=== PATIENT | male | born 1960 | race Two or more races ===

== ENCOUNTER 2020-08-14 19:06 | Inpatient (IN) | payer MEDICAID ==
[~2020-08-14] VITALS: Ht 172.7 cm; Wt 70.0 kg
[~2020-08-14 19:06] MED LIST: AMLO5TAB15 PO; CARV25TA55 PO; FURO1TAB33 PO; HYDR50TA15 PO; NIFE1TAB30 PO
[2020-08-14 23:45] LABS: Basophils # (auto) 0 10 ^3/uL (0-0.2); Basophils % (auto) 0.3 % (0.0-2.0); Eosinophils # (auto) 0.1 10 ^3/uL (0-0.8); Eosinophils % (auto) 0.6 % (0.0-7.0); Hematocrit 48.4 % (41.0-53.0); Lymphocytes % (auto) 11.7 % (10.0-50.0); Mean Corpuscular Hemoglobin 29.8 pg (28.0-32.0); Mean Corpuscular Hgb Conc. 33.1 g/dL (32.0-36.0); Mean Corpuscular Volume 90.3 fL (80.0-100.0); Monocytes # (auto) 0.5 10 ^3/uL (0-1.3); Monocytes % (auto) 5.4 % (0.0-12.0); Neutrophils # (auto) 7.1 10 ^3/uL (1.6-8.6); Platelet Count (auto) 185 10^3/uL (140-450); Red Blood Cells 5.36 10^6/uL (4.5-5.90); Red Cell Distribution Width 15.1 % (11.8-14.3); White Blood Cell 8.6 10^3/uL (4.4-10.8)
[2020-08-15 00:03] LABS: INR 1.13 (0.9-1.15); Partial Thromboplastin Time 28.7 sec (23.0-31.2)
[2020-08-15 00:24] LABS: Albumin 3.5 g/dL (3.4-5.0); BUN/Creatinine Ratio 11.3; Bilirubin, Total 0.6 mg/dL (0.2-1.0); Calcium 9.3 mg/dL (8.5-10.1); Potassium 4.1 mmol/L (3.5-5.1); Total Protein 7.2 g/dL (6.4-8.2)
[2020-08-15] MEDS ORDERED: FUROSEMIDE 40 MG/4 ML VIAL IV ONE (01:00)
[2020-08-15] MEDS ORDERED: hydrALAZINE HCL 20 MG/ML VL IV PRN ×2 (02:15→06:15)
[2020-08-15] MEDS ORDERED: ACETAMINOPHEN 325 MG TAB PO PRN (02:15)
[2020-08-15] MEDS ORDERED: ONDANSETRON HCL 4 MG/2 ML VIAL IV PRN (02:15)
[2020-08-15] MEDS ORDERED: DOCUSATE SOD 100 MG CAP PO PRN (02:15)
[2020-08-15] MEDS ORDERED: HYDROcodone-ACET 5/325MG TAB PO PRN (02:15)
[2020-08-15] MEDS ORDERED: ASPI81CH43 PO (02:59)
[2020-08-15] MEDS ORDERED: CLON0.2T PO (02:59)
[2020-08-15 04:25] LABS: Basophils # (auto) 0 10 ^3/uL (0-0.2); Basophils % (auto) 0.4 % (0.0-2.0); Eosinophils # (auto) 0.1 10 ^3/uL (0-0.8); Eosinophils % (auto) 0.9 % (0.0-7.0); Hematocrit 51.4 % (41.0-53.0); Hemoglobin 16.7 g/dL (13.5-17.5); Lymphocytes # (auto) 1.1 10 ^3/uL (0.4-5.4); Lymphocytes % (auto) 14.5 % (10.0-50.0); Mean Corpuscular Hemoglobin 29.4 pg (28.0-32.0); Mean Corpuscular Hgb Conc. 32.6 g/dL (32.0-36.0); Mean Corpuscular Volume 90.4 fL (80.0-100.0); Monocytes # (auto) 0.4 10 ^3/uL (0-1.3); Monocytes % (auto) 5.8 % (0.0-12.0); Neutrophils # (auto) 5.9 10 ^3/uL (1.6-8.6); Neutrophils % (auto) 78.4 % (37.0-80.0); Nucleated Red Blood Cells % 0.2 %; Platelet Count (auto) 209 10^3/uL (140-450); Red Blood Cells 5.69 10^6/uL (4.5-5.90); Red Cell Distribution Width 14.6 % (11.8-14.3); White Blood Cell 7.5 10^3/uL (4.4-10.8)
[2020-08-15 05:09] LABS: Albumin 3.8 g/dL (3.4-5.0); BUN/Creatinine Ratio 11.3; Bilirubin, Total 0.7 mg/dL (0.2-1.0); Calcium 9.5 mg/dL (8.5-10.1); Potassium 4.1 mmol/L (3.5-5.1); Total Protein 8.1 g/dL (6.4-8.2)
[2020-08-15] MEDS: SODIUM CHLOR 0.9% PF (SALINE LOCK) 10ML VIAL/SYR IV SCH ×3 (06:05→21:35)
[2020-08-15] MEDS ORDERED: amLODIPine BESYLATE 5 MG TAB ONE (06:46)
[2020-08-15] MEDS ORDERED: hydrALAZINE HCL 10 MG TAB ONE (06:47)
[2020-08-15] MEDS: hydrALAZINE HCL 25 MG TAB PO SCH ×3 (06:54→21:35)
[2020-08-15] MEDS: amLODIPine BESYLATE 5 MG TAB PO SCH ×2 (06:55→10:00)
--- NOTE | 2020-08-15 09:05 | NUR ---
RECEIVED REPORT RECEIVED REPORT FROM CONTENT PRODUCER STUART. PER STUART LAST BP WAS 170/109 AND HYDRALAZINE WAS GIVEN. PER ER WIRE COATING OPERATOR METAL STATED TO SEND PT UPSTAIRS PT RECEIVED HYDRALAZINE. PT IS ALREADY ON WAY, PT WAS PASSING BY NURSES STATION REPORT WAS BEING RECEIVED. WILL ASSESS BP PER WIRE COATING OPERATOR METAL PT SHOULDN'T COME UP TO ROOM WITH SBP>170 OR DIASTOLIC BP >100.
--- NOTE | 2020-08-15 09:10 | NUR ---
HOUSE TOBACCO CHECKOUT CLERK LISSA STATED THAT SHE IS AWARE PT BP IS STILL 170/109 AND PT IS TO GO TO ROOM BECAUSE ER CANNOT BE HOLDING ON TO PT FOR HOURS. PER LISSA PT HAS PRN MEDICATIONS FOR BP AND MEDICATION WAS GIVEN PRIOR TO COMING TO ROOM. PER LISSA RANDALL TOBACCO CHECKOUT CLERK OKAY FOR PT TO BE ACCEPTED TO THE UNIT.
[2020-08-15 09:23] VITALS: BP 149/105
[2020-08-15] MEDS: ASPirin 81 mg TAB PO SCH (09:57)
[2020-08-15] MEDS: FAMOTIDINE 20 MG TAB PO SCH (09:57)
[2020-08-15] MEDS: ASCORBIC ACID 500 MG TAB PO SCH ×2 (09:57→21:34)
[2020-08-15] MEDS: MULTIPLE VITAMIN TAB PO SCH (09:58)
[2020-08-15] MEDS: CARVEDILOL 12.5 MG TAB PO SCH ×2 (09:58→21:35)
[2020-08-15] MEDS: ZINC SULFATE 220mg CAP or TAB PO SCH (09:58)
[2020-08-15] MEDS: NIFEdipine ER 30 MG TAB PO SCH (09:59)
[2020-08-15] MEDS ORDERED: amLODIPine BESYLATE 5 MG TAB PO SCH (10:00)
[2020-08-15] MEDS: FUROSEMIDE 20 MG/2 ML VIAL IV SCH (10:00)
[2020-08-15] MEDS: MORPHINE SULFATE 4 MG/ML SYR/VIAL IV PRN (10:33)
[2020-08-15] MEDS ORDERED: LABETALOL HCL 5 MG/ML 4ML SYRINGE IV PRN (12:45)
[2020-08-15 12:58] VITALS: BP 180/108
[2020-08-15 16:37] VITALS: BP 131/84
--- NOTE | 2020-08-15 19:20 | NUR ---
CHANGE OF SHIFT REPORT GIVEN TO MARKETING COORDINATOR RN. PT STABLE AT THIS TIME.
--- NOTE | 2020-08-15 19:30 | NUR ---
Opening Shift Note Assumed care of patient, awake and alert. No S/S of distress/SOB or pain. Fall and safety precautions in place. Instructed on POC and to call for assist PRN, patient verbalized understanding and in agreement. Will continue to monitor for changes Q1hr and PRN.
[2020-08-15 22:00] VITALS: BP 127/96
--- NOTE | 2020-08-15 22:22 | NUR ---
HEART RATE - SVT PATIENT'S HEART RATE SVT AT 150 BPM. MD [facility] AWARE OF PATIENT'S HEART STATUS. Addendum: 08/15/20 at 2233 by DON DENIS RN RN TELE STRIP PLACED IN CHART.
--- NOTE | 2020-08-15 22:30 | NUR ---
HEART RATE RECHECK PATIENT'S HEART RATE NOW 79 BPM. WILL CONTINUE TO MONITOR.
[2020-08-16 05:00] VITALS: BP 146/97
[2020-08-16] MEDS: SODIUM CHLOR 0.9% PF (SALINE LOCK) 10ML VIAL/SYR IV SCH ×3 (06:03→22:13)
[2020-08-16] MEDS: hydrALAZINE HCL 25 MG TAB PO SCH ×3 (06:03→22:19)
[2020-08-16 06:13] LABS: Basophils # (auto) 0 10 ^3/uL (0-0.2); Basophils % (auto) 0.6 % (0.0-2.0); Eosinophils # (auto) 0.2 10 ^3/uL (0-0.8); Eosinophils % (auto) 2.6 % (0.0-7.0); Hematocrit 51.3 % (41.0-53.0); Hemoglobin 17.2 g/dL (13.5-17.5); Lymphocytes % (auto) 15.8 % (10.0-50.0); Mean Corpuscular Hemoglobin 30.1 pg (28.0-32.0); Mean Corpuscular Hgb Conc. 33.6 g/dL (32.0-36.0); Mean Corpuscular Volume 89.4 fL (80.0-100.0); Monocytes # (auto) 0.5 10 ^3/uL (0-1.3); Monocytes % (auto) 7.1 % (0.0-12.0); Neutrophils # (auto) 4.8 10 ^3/uL (1.6-8.6); Neutrophils % (auto) 73.9 % (37.0-80.0); Platelet Count (auto) 218 10^3/uL (140-450); Red Blood Cells 5.73 10^6/uL (4.5-5.90); White Blood Cell 6.5 10^3/uL (4.4-10.8)
[2020-08-16 06:30] LABS: Albumin 3.5 g/dL (3.4-5.0); BUN/Creatinine Ratio 11.6; Bilirubin, Total 0.6 mg/dL (0.2-1.0); Calcium 9.3 mg/dL (8.5-10.1); Potassium 3.2 mmol/L (3.5-5.1); Total Protein 7.5 g/dL (6.4-8.2)
[2020-08-16 09:00] VITALS: BP 129/78
[2020-08-16] MEDS: FUROSEMIDE 20 MG/2 ML VIAL IV SCH (11:00)
[2020-08-16] MEDS: FAMOTIDINE 20 MG TAB PO SCH (11:00)
[2020-08-16] MEDS: ASPirin 81 mg TAB PO SCH (11:00)
[2020-08-16] MEDS: MULTIPLE VITAMIN TAB PO SCH (11:00)
--- NOTE | 2020-08-16 11:00 | NUR ---
PT REFUSED FUROSEMIDE, PT EDUCATED ON IMPORTANCE OF TAKING MEDICATION. PT STILL REFUSED.
[2020-08-16] MEDS: NIFEdipine ER 30 MG TAB PO SCH (11:01)
[2020-08-16] MEDS: amLODIPine BESYLATE 5 MG TAB PO SCH (11:01)
[2020-08-16] MEDS: ZINC SULFATE 220mg CAP or TAB PO SCH (11:01)
[2020-08-16] MEDS: ASCORBIC ACID 500 MG TAB PO SCH ×2 (11:02→22:19)
[2020-08-16] MEDS: CARVEDILOL 12.5 MG TAB PO SCH ×3 (11:02→22:19)
--- NOTE | 2020-08-16 11:02 | NUR ---
Nutrition Consult for N/V/D Pt denies GI issues Consider changing pt diet to Renal Specific 50g protein, 2g Na, 2g K, low phos d/t to CKD no HD Est energy needs 2960-7051 kcal (25-30 kcal/kg BW 69.6kg) Est protein needs 42-56g (0.6-0.8g/kg BW 69.6kg r/t elevated RFT, CKD no HD) WIll monitor and reassess prn. Addendum: 08/16/20 at [address] Amended: Links added.
[2020-08-16 13:00] VITALS: BP 124/79
--- NOTE | 2020-08-16 13:40 | NUR ---
DR SPANN MADE AWARE OF PT RUN OF VTACH. NEW ORDERS RECEIVED.
--- NOTE | 2020-08-16 13:50 | NUR ---
TELE STRIPS WITH SHOWING ARRHYTHMIA WERE NOT SENT UP TO UNIT UNTIL 1350.
--- NOTE | 2020-08-16 13:55 | NUR ---
DR SPANN VIEWED TELE STRIP, NEW ORDER RECEIVED FOR 12 LEAD EKG. 1415- DR SPANN REVIEWED 12 LEAD EKG. NO NEW ORDERS RECEIVED.
[2020-08-16] MEDS ORDERED: POTASSIUM CHL 20 Meq TABLET PO ONE (14:00)
[2020-08-16 16:42] VITALS: BP 143/94
--- NOTE | 2020-08-16 17:05 | NUR ---
1705-PT STATES HE HAS CP 02/01. 1707-PT BP 139/108 NITRO SL GIVEN ORDERED. 1712-PT STATES HE NO LONGER HAS PAIN, AND NITRO RELIEVED THE CP. WILL CONTINUE TO MONITOR Addendum: 08/16/20 at 1822 by Meghan Nur RN RN 1704-PT WAS IN SINUS RHYTHM.
[2020-08-16] MEDS: NITROGLYCERIN 0.4 MG SL TAB SL PRN ×4 (17:08→19:09)
--- NOTE | 2020-08-16 18:15 | NUR ---
DR SORIA PAGED DR SAINI TO MAKE HIM AWARE OF PT EXPERIENCING CP EARLIER THAT WAS RELIEVED WITH ONE DOSE OF NITRO SL. AWAITING CALL BACK. PT IS SR IN THE 70'S.
--- NOTE | 2020-08-16 18:53 | NUR ---
C PYTHON DEVELOPER STILL HAS NOT CALLED BACK AFTER EARLIER PAGE. PT IS EXPERIENCING CP AGAIN 7/10. PT PLACED ON 2L NC. NITRO SL ADMINISTERED ORDERED. SEE EMAR. BP 141/102. 1854- DR FELDMAN C PYTHON DEVELOPER AT BEDSIDE HE IS AWARE OF EARLIER EPISODE OF CP AND THIS CURRENT CP RIGHT NOW. DR FELDMAN IS AWARE OF ARRHYTHMIAS TODAY. DR FELDMAN WANTS EKG DONE NOW. EKG COMPLETED AT THIS TIME. DR FELDMAN REVIEWED EKG AND STATES TO THE PT THAT HE IS NOT HAVING A HEART ATTACK. DR FELDMAN OKAYED TO PROCEED WITH NITRO ORDERED. DR FELDMAN IS AWARE K WAS 3.2 AND WAS REPLACED WITH KCL 40MEQ PO. 1902- PT STILL COMPLAINS OF CP 7/10 NO RELIEF WITH FIRST DOSE OF NITRO. BP NOW 139/104 SECOND DOSE OF SUBLINGUAL NITRO GIVEN ORDER AND PER DR FELDMAN GO AHEAD TO GIVE SECOND DOSE. DR FELDMAN STATES PT SHOULD HAVE HAD CT ANGIO OF CHEST, HOWEVER NO ORDERS FOR CT ANGIO OF CHEST ARE PRESENT. 1907-ORDER PLACED FOR CT ANGIO OF CHEST PER DR FELDMAN'S REQUEST. 1908- PT STILL COMPLAINS OF CP 7/10. BP NOW 158/96. THIRD DOSE OF NITRO SL GIVEN ORDERED. DR FELDMAN IS AWARE. 1917- PT STATES PAIN IS STILL 7/10. BP NOW 149/94. MORPHINE FOR CP GIVEN ORDERED. DR FELDMAN IS AWARE CP HAS NOT BEEN RELIEVED BY SL NITRO AND MORPHINE HAS BEEN GIVEN. DR FELDMAN AT BEDSIDE. ALL ORDERS DR FELDMAN VERBALIZED TO ENTER WERE ENTERED. 193-PT STATES CP IS NOW BETWEEN A 5 AND 6. IT IS SLIGHTLY IMPROVING.
[2020-08-16] MEDS: MORPHINE SULF INJ 2 MG/ML SYRINGE 1ML IV PRN ×2 (19:18→20:13)
--- NOTE | 2020-08-16 19:40 | NUR ---
CHANGE OF SHIFT CHANGE OF SHIFT REPORT GIVEN TO FACE CLEANER RN. CARE ENDORSED TO FACE CLEANER RN. SHE IS AWARE OF PT EXPERIENCING CP AND MORPHINE WAS LAST GIVEN FOR CP.
--- NOTE | 2020-08-16 19:45 | NUR ---
OPENING SHIFT NOTE Assumed care of patient who is alert and oriented currently on 2L NC with no S/S of distress noted at this time. Per report patient was experiencing chest pain. Patient stated his chest pain has decreased from 8/10 to 4/10. POC discussed with patient, all questions answered, patient verbalized understanding. Bed is locked, in lowest position, side rails up x2. Call light is within reach and patient is encouraged to call for assistance as needed. Will continue to monitor PRN/Q1hr.
--- NOTE | 2020-08-16 20:13 | NUR ---
CHEST PAIN Second dose of morphine was given for chest pain now 04/03. Will reassess and continue to monitor VS and pain.
[2020-08-16 20:20] LABS: Albumin 3.3 g/dL (3.4-5.0); Potassium 3.5 mmol/L (3.5-5.1)
[2020-08-16 20:23] LABS: BUN/Creatinine Ratio 11.2; Bilirubin, Total 0.4 mg/dL (0.2-1.0); Total Protein 7.1 g/dL (6.4-8.2)
--- NOTE | 2020-08-16 20:30 | NUR ---
COVID SWAB ordered rebekah/inhouse swab. Both swabs walked down to lab.
--- NOTE | 2020-08-16 22:45 | NUR ---
SPOKE WITH . wanted to be notified of new potassium level. Made MD aware of new potassium of 3.5, negative rebekah swab, and informed MD that patient will be taken down for CT angio within the hour. No new orders at this time.
--- NOTE | 2020-08-17 02:00 | NUR ---
RADIOLOGY Spoke with radiology, they are not able to do the CT angio with contrast due to patients BUN and creatinine being elevated. Will contact .
--- NOTE | 2020-08-17 02:05 | NUR ---
CALLED No answered, left message regarding no CT angio with contrast. Will await call back.
[2020-08-17 03:12] VITALS: BP 135/94
[2020-08-17 05:28] VITALS: BP 137/97
[2020-08-17] MEDS: hydrALAZINE HCL 25 MG TAB PO SCH ×3 (06:11→22:08)
[2020-08-17] MEDS: CARVEDILOL 12.5 MG TAB PO SCH ×3 (06:12→22:08)
[2020-08-17] MEDS: SODIUM CHLOR 0.9% PF (SALINE LOCK) 10ML VIAL/SYR IV SCH ×3 (06:12→21:44)
--- NOTE | 2020-08-17 07:27 | NUR ---
DR. FELDMAN BEDSIDE New orders for VQ scan and troponin, orders placed will carry out.
[2020-08-17 07:31] LABS: Basophils # (auto) 0.1 10 ^3/uL (0-0.2); Basophils % (auto) 0.9 % (0.0-2.0); Eosinophils # (auto) 0.2 10 ^3/uL (0-0.8); Hemoglobin 18.1 g/dL (13.5-17.5); Lymphocytes # (auto) 1.2 10 ^3/uL (0.4-5.4); Lymphocytes % (auto) 16.1 % (10.0-50.0); Mean Corpuscular Hgb Conc. 33.6 g/dL (32.0-36.0); Mean Corpuscular Volume 89.5 fL (80.0-100.0); Monocytes # (auto) 0.5 10 ^3/uL (0-1.3); Monocytes % (auto) 7.5 % (0.0-12.0); Neutrophils # (auto) 5.2 10 ^3/uL (1.6-8.6); Neutrophils % (auto) 72.5 % (37.0-80.0); Nucleated Red Blood Cells % 0.4 %; Platelet Count (auto) 235 10^3/uL (140-450); Red Blood Cells 6.04 10^6/uL (4.5-5.90); Red Cell Distribution Width 15.1 % (11.8-14.3); White Blood Cell 7.2 10^3/uL (4.4-10.8)
[2020-08-17 07:50] LABS: Potassium 3.8 mmol/L (3.5-5.1)
--- NOTE | 2020-08-17 07:51 | NUR ---
CARE ENDORSED TO DAY SHIFT RN
[2020-08-17 08:04] LABS: Albumin 3.4 g/dL (3.4-5.0); BUN/Creatinine Ratio 12.2; Bilirubin, Total 0.5 mg/dL (0.2-1.0); Calcium 9.1 mg/dL (8.5-10.1); Magnesium 2.6 mg/dL (1.6-2.6); Total Protein 7.8 g/dL (6.4-8.2)
[2020-08-17 08:07] LABS: Phosphorus 2.4 mg/dL (2.5-4.90); Uric Acid 8.9 mg/dL (3.5-7.2)
--- NOTE | 2020-08-17 08:10 | NUR ---
Opening Shift Note Assumed care of patient, awake and alert. No S/S of distress/SOB or pain. Bed in lowest position side rails up x2 and call light within reach. Left wrist 20 G IV clean, dry, and patent with no signs of swelling or redness. Instructed on POC and to call for assist PRN, will continue to monitor for changes Q1hr and PRN.
[2020-08-17 08:15] LABS: Urine WBC None Seen /hpf (0 - 3)
[2020-08-17 08:23] LABS: Urine Bacteria FEW /hpf (None Seen); Urine Blood Negative /uL (Negative); Urine Specific Gravity 1.015 (1.001-1.035)
[2020-08-17 09:00] VITALS: BP 137/96
[2020-08-17 09:05] LABS: Protein, Urine 112.6 mg/dL (0.0-11.9)
[2020-08-17] MEDS: ASCORBIC ACID 500 MG TAB PO SCH ×2 (09:37→22:08)
[2020-08-17] MEDS: FUROSEMIDE 20 MG/2 ML VIAL IV SCH (09:37)
[2020-08-17] MEDS: ZINC SULFATE 220mg CAP or TAB PO SCH (09:38)
[2020-08-17] MEDS: ASPirin 81 mg TAB PO SCH (09:38)
[2020-08-17] MEDS: FAMOTIDINE 20 MG TAB PO SCH (09:38)
[2020-08-17] MEDS: MULTIPLE VITAMIN TAB PO SCH (09:38)
[2020-08-17] MEDS: NIFEdipine ER 30 MG TAB PO SCH (09:38)
[2020-08-17] MEDS: amLODIPine BESYLATE 5 MG TAB PO SCH (09:42)
--- NOTE | 2020-08-17 10:35 | NUR ---
Patient off floor Patient off floor for procedure.
[2020-08-17 13:00] VITALS: BP 153/115
[2020-08-17] MEDS: cloNIDine HCL 0.1 MG TAB PO SCH ×2 (14:03→22:00)
[2020-08-17] MEDS: MORPHINE SULF INJ 2 MG/ML SYRINGE 1ML IV PRN (14:55)
--- NOTE | 2020-08-17 15:00 | NUR ---
IV removal IV DC'd with clean sterile technique, catheter fully intact. Pressure dressing applied to site. Patient tolerated well. NOTE: [left wrist leaking and painful]
--- NOTE | 2020-08-17 15:05 | NUR ---
IV insertion IV access obtained, via clean sterile technique by inserting 22 gauge catheter at left forearm after 1 attempt. IV secured properly. No trauma to site. Patient tolerated well.
[2020-08-17 17:00] VITALS: BP 127/85
[2020-08-17] MEDS: MORPHINE SULFATE 4 MG/ML SYR/VIAL IV PRN ×2 (17:14→22:27)
--- NOTE | 2020-08-17 19:10 | NUR ---
PATIENT ROUNDS PATIENT SITTING UP IN BED ON THE TELEPHONE. NO S/S OF DISTRESS OR SOB. PATIENT DENIES PAIN. WILL ENDORSE CARE TO ROCK WORKER RN.
--- NOTE | 2020-08-17 19:20 | NUR ---
OPENING SHIFT NOTE Assumed care of patient who is alert and oriented currently on 2L NC with no S/S of distress noted at this time. POC discussed with patient, all questions answered, patient verbalized understanding. Bed is locked, in lowest position, side rails up x2. Call light is within reach and patient is encouraged to call for assistance as needed. Will continue to monitor PRN/Q1hr.
[2020-08-17 22:00] VITALS: BP 130/80
[2020-08-18 05:15] VITALS: BP 135/69
[2020-08-18] MEDS: hydrALAZINE HCL 25 MG TAB PO SCH ×2 (05:22→14:00)
[2020-08-18] MEDS: CARVEDILOL 12.5 MG TAB PO SCH ×2 (05:23→14:00)
[2020-08-18] MEDS: MORPHINE SULFATE 4 MG/ML SYR/VIAL IV PRN (06:03)
[2020-08-18] MEDS: SODIUM CHLOR 0.9% PF (SALINE LOCK) 10ML VIAL/SYR IV SCH ×2 (06:03→14:00)
[2020-08-18] MEDS: cloNIDine HCL 0.1 MG TAB PO SCH ×2 (06:18→14:00)
[2020-08-18 06:19] LABS: Basophils # (auto) 0 10 ^3/uL (0-0.2); Basophils % (auto) 0.8 % (0.0-2.0); Eosinophils # (auto) 0.2 10 ^3/uL (0-0.8); Eosinophils % (auto) 4.8 % (0.0-7.0); Hematocrit 46.9 % (41.0-53.0); Hemoglobin 15.3 g/dL (13.5-17.5); Lymphocytes % (auto) 20.8 % (10.0-50.0); Mean Corpuscular Hemoglobin 29.5 pg (28.0-32.0); Mean Corpuscular Hgb Conc. 32.7 g/dL (32.0-36.0); Monocytes # (auto) 0.5 10 ^3/uL (0-1.3); Monocytes % (auto) 11.1 % (0.0-12.0); Neutrophils % (auto) 62.5 % (37.0-80.0); Nucleated Red Blood Cells % 0.1 %; Platelet Count (auto) 175 10^3/uL (140-450); Red Blood Cells 5.21 10^6/uL (4.5-5.90); Red Cell Distribution Width 14.7 % (11.8-14.3); White Blood Cell 4.8 10^3/uL (4.4-10.8)
[2020-08-18 07:06] LABS: Potassium 3.6 mmol/L (3.5-5.1)
[2020-08-18 07:13] LABS: BUN/Creatinine Ratio 15.6; Calcium 8.7 mg/dL (8.5-10.1)
--- NOTE | 2020-08-18 07:15 | NUR ---
CARE ENDORSED TO DAY SHIFT RN
--- NOTE | 2020-08-18 07:35 | NUR ---
Opening Shift Note Assumed care of patient, awake and alert. No S/S of distress/SOB or pain. Updated on POC and to call for assistance PRN, patient verbalized understanding. Bed locked in lowest position, side rails up x2, call light within reach. Will continue to monitor for changes Q1hr and PRN.,
[2020-08-18 09:00] VITALS: BP 119/86
[2020-08-18] MEDS: MORPHINE SULF INJ 2 MG/ML SYRINGE 1ML IV PRN (09:07)
[2020-08-18] MEDS: ASPirin 81 mg TAB PO SCH (09:07)
[2020-08-18] MEDS: ZINC SULFATE 220mg CAP or TAB PO SCH (09:07)
[2020-08-18] MEDS: FUROSEMIDE 20 MG/2 ML VIAL IV SCH (09:07)
[2020-08-18] MEDS: FAMOTIDINE 20 MG TAB PO SCH (09:07)
[2020-08-18] MEDS: MULTIPLE VITAMIN TAB PO SCH (09:08)
[2020-08-18] MEDS: amLODIPine BESYLATE 5 MG TAB PO SCH (09:08)
[2020-08-18] MEDS: NIFEdipine ER 30 MG TAB PO SCH (09:08)
[2020-08-18] MEDS: ASCORBIC ACID 500 MG TAB PO SCH (09:09)
--- NOTE | 2020-08-18 09:15 | NUR ---
PACEMAKER INTERROGATED BY [facility] SEE HARD CHART. PER SHELLFISH PROCESSING MACHINE TENDER, DR SAINI MADE AWARE OF INTERROGATION.
[2020-08-18] MEDS ORDERED: NICOTINE 21MG/24 HR TOPICAL PATCH TD SCH (10:00)
[2020-08-18 13:00] VITALS: BP 121/86
--- NOTE | 2020-08-18 14:10 | NUR ---
DISCHARGE HOME Discharge instructions given as ordered. Encourage to follow up with PMD as instructed. All questions and concerns addressed. Patient verbalized understanding. Medication reconciliation form completed and copy given to patient. IV removed with catheter intact, pressure dressing applied. Telemetry unit returned to ICU. [facility] with all personal belongings, accompanied by staff. Provided with taxi voucher, pending pickup. No distress noted at time of departure.
[2020-08-19] MEDS ORDERED: NIFE90TA49 PO (06:50)
== END 2020-08-18 14:10 | disposition home or self-care (01) | DRG 199 ==
LOC: EDBD 19:06 → ER 19:06 → TELE 19:07 → TELE-WESTW 08-15 09:09
PROVIDERS: ADMIT Nurse Practitioner Family; ATTEND Internal Medicine
PROC: 4B02XSZ Measurement of Cardiac Pacemaker, External Approach (ICD-10-PCS; principal; 2020-08-18)
DX: I16.0 Hypertensive urgency (principal); I13.0 Hypertensive heart and chronic kidney disease with heart failure and stage 1 through stage 4 chronic kidney disease, or unspecified chronic kidney disease; I50.43 Acute on chronic combined systolic (congestive) and diastolic (congestive) heart failure; N17.9 Acute kidney failure, unspecified; N18.32 Chronic kidney disease, stage 3b; E87.6 Hypokalemia; I25.10 Atherosclerotic heart disease of native coronary artery without angina pectoris; I47.1 Supraventricular tachycardia; N27.1 Small kidney, bilateral; N40.0 Benign prostatic hyperplasia without lower urinary tract symptoms; Z20.828 Contact with and (suspected) exposure to other viral communicable diseases; I25.2 Old myocardial infarction; Z79.82 Long term (current) use of aspirin; Z79.899 Other long term (current) drug therapy; Z82.49 Family history of ischemic heart disease and other diseases of the circulatory system; Z86.73 Personal history of transient ischemic attack (TIA), and cerebral infarction without residual deficits; Z95.810 Presence of automatic (implantable) cardiac defibrillator
CPT/HCPCS: 36415; 71045; 76775; 78582; 80048; 80053; 81001; 82306; 82570; 83735; 83880; 83970; 84100; 84156; 84300; 84443; 84484; 84550; 85025; 85379; 85610; 85730; 87426; 93306; 96374; 96375; 96376; G0378; J3490

== ENCOUNTER 2020-08-18 23:20 | Inpatient (IN) | payer MEDICAID ==
[~2020-08-18] VITALS: Ht 172.7 cm; Wt 76.3 kg
[~2020-08-18 23:20] MED LIST changes: -AMLO5TAB15 PO; +ASPI81CH43 PO; +CLON0.2T PO; -FURO1TAB33 PO
[2020-08-19 00:14] LABS: Basophils # (auto) 0.1 10 ^3/uL (0-0.2); Basophils % (auto) 1.1 % (0.0-2.0); Eosinophils # (auto) 0.3 10 ^3/uL (0-0.8); Eosinophils % (auto) 5.2 % (0.0-7.0); Hematocrit 49.7 % (41.0-53.0); Hemoglobin 16.6 g/dL (13.5-17.5); Lymphocytes # (auto) 1.6 10 ^3/uL (0.4-5.4); Lymphocytes % (auto) 25.1 % (10.0-50.0); Mean Corpuscular Hemoglobin 29.9 pg (28.0-32.0); Mean Corpuscular Hgb Conc. 33.4 g/dL (32.0-36.0); Mean Corpuscular Volume 89.5 fL (80.0-100.0); Monocytes # (auto) 0.6 10 ^3/uL (0-1.3); Monocytes % (auto) 9.5 % (0.0-12.0); Neutrophils # (auto) 3.8 10 ^3/uL (1.6-8.6); Neutrophils % (auto) 59.1 % (37.0-80.0); Nucleated Red Blood Cells % 0.1 %; Platelet Count (auto) 221 10^3/uL (140-450); Red Blood Cells 5.55 10^6/uL (4.5-5.90); White Blood Cell 6.4 10^3/uL (4.4-10.8)
[2020-08-19 00:30] LABS: Albumin 3.6 g/dL (3.4-5.0); BUN/Creatinine Ratio 15.4; Calcium 8.9 mg/dL (8.5-10.1); Potassium 3.6 mmol/L (3.5-5.1)
[2020-08-19 00:35] LABS: Bilirubin, Total 0.4 mg/dL (0.2-1.0); Total Protein 7.8 g/dL (6.4-8.2)
[2020-08-19] MEDS ORDERED: NITROGLYCERIN 0.2MG/HR TOPICAL PATCH TD ONE (03:00)
[2020-08-19] MEDS ORDERED: ASPirin 325 MG TAB PO ONE (03:00)
[2020-08-19] MEDS ORDERED: DOCUSATE SOD 100 MG CAP PO PRN (06:45)
[2020-08-19] MEDS ORDERED: TEMAZEPAM 15 MG CAP PO PRN (06:45)
[2020-08-19] MEDS ORDERED: NIFE90TA49 PO (06:50)
[2020-08-19 08:24] LABS: Urine WBC None Seen /hpf (0 - 3)
[2020-08-19] MEDS: CARVEDILOL 12.5 MG TAB PO SCH ×2 (08:24→22:00)
[2020-08-19] MEDS: ASPirin 81 mg TAB PO SCH (08:24)
[2020-08-19] MEDS: HYDROcodone-ACET 5/325MG TAB PO PRN (08:25)
[2020-08-19 08:29] LABS: Urine Bacteria NONE SEEN /hpf (None Seen); Urine Blood Negative /uL (Negative); Urine Specific Gravity 1.013 (1.001-1.035)
[2020-08-19 08:49] LABS: Amphetamine Screen, Urine NEGATIVE (NEGATIVE); Benzodiazephine Screen, Urine NEGATIVE (NEGATIVE)
[2020-08-19 08:56] LABS: Alcohol, Urine < 3.0 mg/dL (0-10)
[2020-08-19 08:57] LABS: Barbiturate Scree,Urine NEGATIVE (NEGATIVE); Cannabinoid Screen, Urine POSITIVE (NEGATIVE); Cocaine Screen, Urine NEGATIVE (NEGATIVE); Opiate Scree,Urine NEGATIVE (NEGATIVE); Phencyclidine Screen, Urine NEGATIVE (NEGATIVE)
[2020-08-19] MEDS ORDERED: NIFEdipine ER 30 MG TAB PO SCH (10:00)
[2020-08-19] MEDS: MORPHINE SULF INJ 2 MG/ML SYRINGE 1ML IV PRN ×4 (11:59→21:57)
[2020-08-19] MEDS: ONDANSETRON HCL 4 MG/2 ML VIAL IV PRN ×2 (11:59→12:58)
[2020-08-19] MEDS ORDERED: NICOTINE 21MG/24 HR TOPICAL PATCH TD ONE (16:45)
[2020-08-19 17:18] VITALS: BP 128/70
[2020-08-19] MEDS: ISOSORBIDE MONONITRATE ER 60 MG TAB PO SCH (17:56)
[2020-08-19 22:00] VITALS: BP 127/78
[2020-08-19] MEDS: DRONEDARONE HCL 400 MG TAB PO SCH (22:00)
[2020-08-20 05:00] VITALS: BP 128/80
[2020-08-20 05:49] LABS: Basophils # (auto) 0.1 10 ^3/uL (0-0.2); Basophils % (auto) 1.1 % (0.0-2.0); Eosinophils # (auto) 0.3 10 ^3/uL (0-0.8); Eosinophils % (auto) 5.3 % (0.0-7.0); Hematocrit 44.7 % (41.0-53.0); Hemoglobin 14.8 g/dL (13.5-17.5); Lymphocytes # (auto) 1.2 10 ^3/uL (0.4-5.4); Lymphocytes % (auto) 24.6 % (10.0-50.0); Mean Corpuscular Hemoglobin 29.7 pg (28.0-32.0); Mean Corpuscular Hgb Conc. 33.1 g/dL (32.0-36.0); Monocytes # (auto) 0.5 10 ^3/uL (0-1.3); Monocytes % (auto) 10.5 % (0.0-12.0); Neutrophils # (auto) 2.8 10 ^3/uL (1.6-8.6); Neutrophils % (auto) 58.5 % (37.0-80.0); Nucleated Red Blood Cells % 0.1 %; Platelet Count (auto) 192 10^3/uL (140-450); Red Blood Cells 4.97 10^6/uL (4.5-5.90); Red Cell Distribution Width 14.7 % (11.8-14.3); White Blood Cell 4.8 10^3/uL (4.4-10.8)
[2020-08-20] MEDS: CARVEDILOL 12.5 MG TAB PO SCH ×3 (06:00→22:28)
[2020-08-20 06:16] LABS: Potassium 3.6 mmol/L (3.5-5.1)
[2020-08-20 06:24] LABS: BUN/Creatinine Ratio 17.4; Calcium 8.5 mg/dL (8.5-10.1)
[2020-08-20] MEDS: MORPHINE SULF INJ 2 MG/ML SYRINGE 1ML IV PRN (06:37)
[2020-08-20] MEDS: DRONEDARONE HCL 400 MG TAB PO SCH ×2 (10:11→22:00)
[2020-08-20] MEDS: ASPirin 81 mg TAB PO SCH (10:11)
[2020-08-20] MEDS: ISOSORBIDE MONONITRATE ER 60 MG TAB PO SCH (10:11)
[2020-08-20] MEDS: NICOTINE 21MG/24 HR TOPICAL PATCH TD SCH (10:12)
[2020-08-20] MEDS: NIFEdipine ER 30 MG TAB PO SCH (10:12)
[2020-08-20 13:00] VITALS: BP 142/80
[2020-08-20] MEDS: HYDROcodone-ACET 5/325MG TAB PO PRN ×2 (13:14→22:27)
[2020-08-20 16:40] VITALS: BP 122/82
[2020-08-20 20:00] VITALS: BP 142/80
[2020-08-21 05:00] VITALS: BP 130/89
[2020-08-21] MEDS: CARVEDILOL 12.5 MG TAB PO SCH ×3 (05:33→21:50)
[2020-08-21] MEDS: HYDROcodone-ACET 5/325MG TAB PO PRN ×3 (07:57→21:51)
[2020-08-21] MEDS: ISOSORBIDE MONONITRATE ER 60 MG TAB PO SCH (08:32)
[2020-08-21] MEDS: ASPirin 81 mg TAB PO SCH (08:32)
[2020-08-21] MEDS: NIFEdipine ER 30 MG TAB PO SCH (08:33)
[2020-08-21] MEDS: NICOTINE 21MG/24 HR TOPICAL PATCH TD SCH (08:33)
[2020-08-21] MEDS: SODIUM CHLORIDE 0.9% 1,000 ML IV SCH ×2 (10:23→21:51)
[2020-08-21 11:31] LABS: Basophils # (auto) 0 10 ^3/uL (0-0.2); Basophils % (auto) 0.8 % (0.0-2.0); Eosinophils # (auto) 0.2 10 ^3/uL (0-0.8); Eosinophils % (auto) 3.7 % (0.0-7.0); Hematocrit 43.4 % (41.0-53.0); Hemoglobin 14.4 g/dL (13.5-17.5); Lymphocytes % (auto) 17.7 % (10.0-50.0); Mean Corpuscular Hemoglobin 29.9 pg (28.0-32.0); Mean Corpuscular Hgb Conc. 33.2 g/dL (32.0-36.0); Monocytes # (auto) 0.5 10 ^3/uL (0-1.3); Monocytes % (auto) 8.9 % (0.0-12.0); Neutrophils # (auto) 3.8 10 ^3/uL (1.6-8.6); Neutrophils % (auto) 68.9 % (37.0-80.0); Nucleated Red Blood Cells % 0.1 %; Platelet Count (auto) 211 10^3/uL (140-450); Red Blood Cells 4.82 10^6/uL (4.5-5.90); Red Cell Distribution Width 14.7 % (11.8-14.3); White Blood Cell 5.6 10^3/uL (4.4-10.8)
[2020-08-21 11:43] LABS: BUN/Creatinine Ratio 16.3; Calcium 8.6 mg/dL (8.5-10.1); Magnesium 2.6 mg/dL (1.6-2.6); Potassium 4.2 mmol/L (3.5-5.1)
[2020-08-21] MEDS: DRONEDARONE HCL 400 MG TAB PO SCH ×2 (12:16→21:50)
[2020-08-21 13:00] VITALS: BP 137/90
[2020-08-21 17:13] VITALS: BP 135/87
[2020-08-21 22:00] VITALS: BP 133/87
[2020-08-22] MEDS: MORPHINE SULF INJ 2 MG/ML SYRINGE 1ML IV PRN ×3 (02:47→07:41)
[2020-08-22] MEDS: NITROGLYCERIN 0.4 MG SL TAB SL PRN ×3 (03:05→03:18)
[2020-08-22 05:00] VITALS: BP 142/93
[2020-08-22] MEDS: CARVEDILOL 12.5 MG TAB PO SCH ×3 (06:20→21:26)
[2020-08-22] MEDS: ISOSORBIDE MONONITRATE ER 60 MG TAB PO SCH (07:40)
[2020-08-22] MEDS: ASPirin 81 mg TAB PO SCH (07:40)
[2020-08-22] MEDS: DRONEDARONE HCL 400 MG TAB PO SCH ×2 (07:40→21:26)
[2020-08-22] MEDS: NICOTINE 21MG/24 HR TOPICAL PATCH TD SCH (07:41)
[2020-08-22] MEDS: NIFEdipine ER 30 MG TAB PO SCH (07:41)
[2020-08-22 09:00] VITALS: BP 149/81
[2020-08-22 10:21] LABS: Basophils # (auto) 0 10 ^3/uL (0-0.2); Basophils % (auto) 0.7 % (0.0-2.0); Eosinophils # (auto) 0.2 10 ^3/uL (0-0.8); Eosinophils % (auto) 3.7 % (0.0-7.0); Hematocrit 44.1 % (41.0-53.0); Hemoglobin 14.5 g/dL (13.5-17.5); Lymphocytes # (auto) 0.9 10 ^3/uL (0.4-5.4); Lymphocytes % (auto) 18.9 % (10.0-50.0); Mean Corpuscular Hemoglobin 29.8 pg (28.0-32.0); Mean Corpuscular Hgb Conc. 32.9 g/dL (32.0-36.0); Mean Corpuscular Volume 90.5 fL (80.0-100.0); Monocytes # (auto) 0.3 10 ^3/uL (0-1.3); Monocytes % (auto) 6.9 % (0.0-12.0); Neutrophils # (auto) 3.4 10 ^3/uL (1.6-8.6); Neutrophils % (auto) 69.8 % (37.0-80.0); Nucleated Red Blood Cells % 0.1 %; Platelet Count (auto) 217 10^3/uL (140-450); Red Blood Cells 4.88 10^6/uL (4.5-5.90); Red Cell Distribution Width 14.6 % (11.8-14.3); White Blood Cell 4.8 10^3/uL (4.4-10.8)
[2020-08-22 10:33] LABS: Albumin 2.9 g/dL (3.4-5.0); Calcium 8.2 mg/dL (8.5-10.1); Magnesium 2.4 mg/dL (1.6-2.6)
[2020-08-22 10:37] LABS: BUN/Creatinine Ratio 13.1; Bilirubin, Total 0.4 mg/dL (0.2-1.0); Total Protein 6.6 g/dL (6.4-8.2)
[2020-08-22 10:57] LABS: Potassium 3.7 mmol/L (3.5-5.1)
[2020-08-22] MEDS: SODIUM CHLORIDE 0.9% 1,000 ML IV SCH (11:43)
[2020-08-22 13:00] VITALS: BP 151/97
[2020-08-22 17:00] VITALS: BP 151/100
[2020-08-22] MEDS ORDERED: hydrALAZINE HCL 20 MG/ML VL IV PRN (17:30)
[2020-08-22] MEDS: HYDROcodone-ACET 5/325MG TAB PO PRN ×2 (18:39→23:01)
[2020-08-22 22:00] VITALS: BP 156/101
[2020-08-23] MEDS: SODIUM CHLORIDE 0.9% 1,000 ML IV SCH ×2 (02:18→15:34)
[2020-08-23 05:28] VITALS: BP 148/95
[2020-08-23] MEDS: CARVEDILOL 12.5 MG TAB PO SCH ×3 (05:33→21:25)
[2020-08-23] MEDS: HYDROcodone-ACET 5/325MG TAB PO PRN ×4 (05:34→20:48)
[2020-08-23 05:55] LABS: Basophils # (auto) 0 10 ^3/uL (0-0.2); Basophils % (auto) 0.8 % (0.0-2.0); Eosinophils # (auto) 0.2 10 ^3/uL (0-0.8); Eosinophils % (auto) 4.5 % (0.0-7.0); Hematocrit 46.9 % (41.0-53.0); Hemoglobin 15.4 g/dL (13.5-17.5); Lymphocytes % (auto) 18.9 % (10.0-50.0); Mean Corpuscular Hemoglobin 29.6 pg (28.0-32.0); Mean Corpuscular Hgb Conc. 32.8 g/dL (32.0-36.0); Mean Corpuscular Volume 90.4 fL (80.0-100.0); Monocytes # (auto) 0.4 10 ^3/uL (0-1.3); Monocytes % (auto) 6.9 % (0.0-12.0); Neutrophils # (auto) 3.7 10 ^3/uL (1.6-8.6); Neutrophils % (auto) 68.9 % (37.0-80.0); Nucleated Red Blood Cells % 0.2 %; Platelet Count (auto) 219 10^3/uL (140-450); Red Blood Cells 5.18 10^6/uL (4.5-5.90); Red Cell Distribution Width 14.8 % (11.8-14.3); White Blood Cell 5.4 10^3/uL (4.4-10.8)
[2020-08-23 06:16] LABS: Albumin 3.4 g/dL (3.4-5.0); BUN/Creatinine Ratio 12.9; Calcium 8.6 mg/dL (8.5-10.1); INR 1.14 (0.9-1.15); Partial Thromboplastin Time 26.9 sec (23.0-31.2); Potassium 3.7 mmol/L (3.5-5.1)
[2020-08-23 06:19] LABS: Bilirubin, Total 0.4 mg/dL (0.2-1.0); Total Protein 7.5 g/dL (6.4-8.2)
[2020-08-23 08:33] VITALS: BP 158/100
[2020-08-23] MEDS: NIFEdipine ER 30 MG TAB PO SCH (09:15)
[2020-08-23] MEDS: ASPirin 81 mg TAB PO SCH (09:15)
[2020-08-23] MEDS: ISOSORBIDE MONONITRATE ER 60 MG TAB PO SCH (09:16)
[2020-08-23] MEDS: DRONEDARONE HCL 400 MG TAB PO SCH ×2 (09:16→21:25)
[2020-08-23] MEDS: NICOTINE 21MG/24 HR TOPICAL PATCH TD SCH (09:18)
[2020-08-23 13:01] VITALS: BP 158/103
[2020-08-23 16:28] VITALS: BP 139/93
[2020-08-23 21:52] VITALS: BP 129/77
[2020-08-24] MEDS: SODIUM CHLORIDE 0.9% 1,000 ML IV SCH ×2 (03:47→17:38)
[2020-08-24 05:15] VITALS: BP 154/97
[2020-08-24] MEDS: CARVEDILOL 12.5 MG TAB PO SCH ×3 (05:21→22:09)
[2020-08-24 07:28] LABS: Basophils # (auto) 0 10 ^3/uL (0-0.2); Basophils % (auto) 0.6 % (0.0-2.0); Eosinophils # (auto) 0.2 10 ^3/uL (0-0.8); Eosinophils % (auto) 4.6 % (0.0-7.0); Hematocrit 45.9 % (41.0-53.0); Lymphocytes # (auto) 0.9 10 ^3/uL (0.4-5.4); Lymphocytes % (auto) 18.2 % (10.0-50.0); Mean Corpuscular Hemoglobin 29.5 pg (28.0-32.0); Mean Corpuscular Hgb Conc. 32.7 g/dL (32.0-36.0); Mean Corpuscular Volume 90.4 fL (80.0-100.0); Monocytes # (auto) 0.4 10 ^3/uL (0-1.3); Monocytes % (auto) 8.1 % (0.0-12.0); Neutrophils # (auto) 3.3 10 ^3/uL (1.6-8.6); Neutrophils % (auto) 68.5 % (37.0-80.0); Nucleated Red Blood Cells % 0.2 %; Platelet Count (auto) 210 10^3/uL (140-450); Red Blood Cells 5.08 10^6/uL (4.5-5.90); Red Cell Distribution Width 14.7 % (11.8-14.3); White Blood Cell 4.9 10^3/uL (4.4-10.8)
[2020-08-24] MEDS ORDERED: LIDOCAINE 2%HCL (LOCAL ANESTH.) INJ 20ML MDV ONE (07:33)
[2020-08-24] MEDS ORDERED: IODIXANOL 320MG/ML 100ML BTL IV ONE (07:33)
[2020-08-24 07:40] LABS: INR 1.16 (0.9-1.15); Partial Thromboplastin Time 30.5 sec (23.0-31.2)
[2020-08-24 07:49] LABS: Albumin 3.1 g/dL (3.4-5.0); Calcium 8.5 mg/dL (8.5-10.1); Potassium 3.7 mmol/L (3.5-5.1)
[2020-08-24 07:54] LABS: BUN/Creatinine Ratio 12.7; Bilirubin, Total 0.4 mg/dL (0.2-1.0); Total Protein 6.7 g/dL (6.4-8.2)
[2020-08-24] MEDS ORDERED: ANGIOMAX 250 MG VIAL IV ONE (08:02)
[2020-08-24] MEDS ORDERED: fentaNYL CITRATE 100 MCG/2 ML VL ONE (08:02)
[2020-08-24] MEDS ORDERED: MIDAZOLAM HCL 1MG/1ML-2 ML VIAL ONE (08:02)
[2020-08-24] MEDS ORDERED: VERAPAMIL 2.5MG/ML INJ 2ML VIAL IV ONE (08:02)
[2020-08-24] MEDS ORDERED: SODIUM CHL 0.9% 0 ML ONE (08:03)
[2020-08-24] MEDS ORDERED: HEPARIN SODIUM (PORCINE) 5000 UNITS/ML 1ML VIAL ONE (08:03)
[2020-08-24 09:15] VITALS: BP 163/110
[2020-08-24] MEDS: ASPirin 81 mg TAB PO SCH (09:49)
[2020-08-24] MEDS: NIFEdipine ER 30 MG TAB PO SCH (09:50)
[2020-08-24] MEDS: ISOSORBIDE MONONITRATE ER 60 MG TAB PO SCH (09:50)
[2020-08-24] MEDS: NICOTINE 21MG/24 HR TOPICAL PATCH TD SCH (09:51)
[2020-08-24] MEDS: DRONEDARONE HCL 400 MG TAB PO SCH ×2 (10:17→22:09)
[2020-08-24] MEDS: HYDROcodone-ACET 5/325MG TAB PO PRN ×3 (10:51→22:17)
[2020-08-24 13:00] VITALS: BP 157/98
[2020-08-24 15:05] LABS: Protein, Urine 52.1 mg/dL (0.0-11.9)
[2020-08-24 17:00] VITALS: BP 151/84
[2020-08-24 22:00] VITALS: BP 144/97
[2020-08-25] MEDS: HYDROcodone-ACET 5/325MG TAB PO PRN ×2 (04:19→09:51)
[2020-08-25 05:00] VITALS: BP 142/99
[2020-08-25 08:12] LABS: Basophils # (auto) 0 10 ^3/uL (0-0.2); Basophils % (auto) 0.9 % (0.0-2.0); Eosinophils # (auto) 0.2 10 ^3/uL (0-0.8); Eosinophils % (auto) 3.6 % (0.0-7.0); Hemoglobin 15.1 g/dL (13.5-17.5); Lymphocytes # (auto) 0.9 10 ^3/uL (0.4-5.4); Lymphocytes % (auto) 17.6 % (10.0-50.0); Mean Corpuscular Hemoglobin 29.8 pg (28.0-32.0); Mean Corpuscular Hgb Conc. 33.5 g/dL (32.0-36.0); Mean Corpuscular Volume 88.9 fL (80.0-100.0); Monocytes # (auto) 0.4 10 ^3/uL (0-1.3); Monocytes % (auto) 8.3 % (0.0-12.0); Neutrophils # (auto) 3.7 10 ^3/uL (1.6-8.6); Neutrophils % (auto) 69.6 % (37.0-80.0); Platelet Count (auto) 242 10^3/uL (140-450); Red Blood Cells 5.06 10^6/uL (4.5-5.90); Red Cell Distribution Width 14.2 % (11.8-14.3); White Blood Cell 5.3 10^3/uL (4.4-10.8)
[2020-08-25 08:22] LABS: INR 1.14 (0.9-1.15); Partial Thromboplastin Time 28.5 sec (23.0-31.2)
[2020-08-25 08:28] LABS: Albumin 3.2 g/dL (3.4-5.0); Calcium 8.5 mg/dL (8.5-10.1); Potassium 3.8 mmol/L (3.5-5.1)
[2020-08-25 08:30] LABS: BUN/Creatinine Ratio 12.6
[2020-08-25 08:33] LABS: Bilirubin, Total 0.3 mg/dL (0.2-1.0); Total Protein 7.1 g/dL (6.4-8.2)
[2020-08-25 08:42] VITALS: BP 151/98
[2020-08-25] MEDS: SODIUM CHLORIDE 0.9% 1,000 ML IV SCH (09:15)
[2020-08-25] MEDS: ASPirin 81 mg TAB PO SCH (09:15)
[2020-08-25] MEDS: NIFEdipine ER 30 MG TAB PO SCH (09:16)
[2020-08-25] MEDS: CARVEDILOL 12.5 MG TAB PO SCH (09:17)
[2020-08-25] MEDS: ISOSORBIDE MONONITRATE ER 60 MG TAB PO SCH (09:17)
[2020-08-25] MEDS: NICOTINE 21MG/24 HR TOPICAL PATCH TD SCH (09:19)
[2020-08-25] MEDS ORDERED: AMIODARONE HCL 200 MG TAB PO SCH (10:00)
[2020-08-25] MEDS ORDERED: NIFEdipine ER 30 MG TAB PO ONE (11:45)
[2020-08-25 13:01] VITALS: BP 157/101
[2020-08-25 13:39] VITALS: BP 157/101
[2020-08-25 13:55] VITALS: BP 157/101
[2020-08-26] MEDS ORDERED: NIFEdipine ER 30 MG TAB PO SCH (10:00)
== END 2020-08-25 15:30 | disposition home or self-care (01) | DRG 192 ==
LOC: EDBD 23:20 → ER 23:22 → TELE 23:23 → OBSVTOIN 23:23 → TELE-WESTW 08-19 16:33
PROVIDERS: ADMIT Nurse Practitioner; ATTEND Nurse Practitioner
PROC: 4A023N7 Measurement of Cardiac Sampling and Pressure, Left Heart, Percutaneous Approach (ICD-10-PCS; principal; 2020-08-24)
PROC: B211YZZ Fluoroscopy of Multiple Coronary Arteries using Other Contrast (ICD-10-PCS; 2020-08-24)
DX: I47.1 Supraventricular tachycardia (principal); I21.4 Non-ST elevation (NSTEMI) myocardial infarction; N17.0 Acute kidney failure with tubular necrosis; I13.0 Hypertensive heart and chronic kidney disease with heart failure and stage 1 through stage 4 chronic kidney disease, or unspecified chronic kidney disease; I50.22 Chronic systolic (congestive) heart failure; N18.4 Chronic kidney disease, stage 4 (severe); Z20.828 Contact with and (suspected) exposure to other viral communicable diseases; I16.0 Hypertensive urgency; F17.200 Nicotine dependence, unspecified, uncomplicated; I25.110 Atherosclerotic heart disease of native coronary artery with unstable angina pectoris; Z95.0 Presence of cardiac pacemaker; Z79.899 Other long term (current) drug therapy; I25.2 Old myocardial infarction; Z79.82 Long term (current) use of aspirin; Z86.73 Personal history of transient ischemic attack (TIA), and cerebral infarction without residual deficits; Z82.49 Family history of ischemic heart disease and other diseases of the circulatory system
CPT/HCPCS: 36415; 71045; 74176; 80048; 80053; 80307; 81001; 82306; 82570; 83735; 83880; 83970; 84100; 84156; 84300; 84484; 85025; 85610; 85730; 87081; 93005; 96361; 96374; 96375; 96376; 99152; G0378; J2250; J2405; Q9967

== ENCOUNTER 2021-03-20 11:14 | Inpatient (IN) | payer MEDICAID, OTHER ==
[~2021-03-20] VITALS: Ht 172.7 cm; Wt 68.5 kg
[~2021-03-20 11:14] MED LIST changes: -CLON0.2T PO; -HYDR50TA15 PO; -NIFE1TAB30 PO; +NIFE90TA49 PO
[2021-03-20] MEDS ORDERED: SODIUM CHLORIDE 0.9% 1,000 ML IVB ONE (11:45)
[2021-03-20] MEDS ORDERED: ONDANSETRON HCL 4 MG/2 ML VIAL IV ONE (11:45)
[2021-03-20 12:28] LABS: INR 1.14 (0.9-1.15); Partial Thromboplastin Time 30.2 sec (23.0-31.2)
[2021-03-20 13:54] LABS: Basophils # (auto) 0 10 ^3/uL (0-0.2); Basophils % (auto) 0.4 % (0.0-2.0); Eosinophils # (auto) 0.4 10 ^3/uL (0-0.8); Eosinophils % (auto) 4.3 % (0.0-7.0); Hematocrit 42.4 % (41.0-53.0); Hemoglobin 14.6 g/dL (13.5-17.5); Lymphocytes # (auto) 1.2 10 ^3/uL (0.4-5.4); Lymphocytes % (auto) 12.5 % (10.0-50.0); Mean Corpuscular Hemoglobin 30.1 pg (28.0-32.0); Mean Corpuscular Hgb Conc. 34.3 g/dL (32.0-36.0); Mean Corpuscular Volume 87.7 fL (80.0-100.0); Monocytes # (auto) 0.6 10 ^3/uL (0-1.3); Monocytes % (auto) 6.6 % (0.0-12.0); Neutrophils # (auto) 7.5 10 ^3/uL (1.6-8.6); Neutrophils % (auto) 76.2 % (37.0-80.0); Nucleated Red Blood Cells % 0.1 %; Red Blood Cells 4.84 10^6/uL (4.5-5.90); Red Cell Distribution Width 15.3 % (11.8-14.3); White Blood Cell 9.8 10^3/uL (4.4-10.8)
[2021-03-20] MEDS ORDERED: cloNIDine HCL 0.1 MG TAB PO ONE (14:15)
[2021-03-20 15:26] LABS: Chloride 109 mmol/L (98-107); Potassium 3.3 mmol/L (3.5-5.1); Sodium 142 mmol/L (136-145)
[2021-03-20 15:27] LABS: Alanine Aminotransferase 17 U/L (16-61); Albumin 2.8 g/dL (3.4-5.0); Alkaline Phosphatase 97 U/L (45-117); Anion Gap 14 (5-15); Aspartate Aminotransferase 32 U/L (15-37); BUN/Creatinine Ratio 9.3; Bilirubin, Total 0.5 mg/dL (0.2-1.0); Blood Urea Nitrogen 25 mg/dL (7-18); Calcium 8.7 mg/dL (8.5-10.1); Carbon Dioxide 19 mmol/L (21-32); GFR African American 31 mL/min; GFR Non-African American 26 mL/min; Glucose 82 mg/dL (74-106); Magnesium 2.2 mg/dL (1.6-2.6); Total Protein 6.8 g/dL (6.4-8.2)
[2021-03-20] MEDS ORDERED: NITROGLYCERIN 0.4 MG SL TAB SL PRN (16:15)
[2021-03-20] MEDS ORDERED: MORPHINE SULF INJ 2 MG/ML SYRINGE 1ML IV PRN (16:15)
[2021-03-20] MEDS ORDERED: POTASSIUM CHL 20 Meq TABLET PO ONE (16:15)
[2021-03-20] MEDS ORDERED: FUROSEMIDE 40 MG/4 ML VIAL IV ONE (16:15)
[2021-03-20] MEDS ORDERED: HYDROcodone-ACET 5/325MG TAB PO PRN (16:15)
[2021-03-20] MEDS ORDERED: ONDANSETRON HCL 4 MG/2 ML VIAL IV PRN (16:15)
[2021-03-20] MEDS ORDERED: POLYETHYLENE GLYCOL 17 GM PWDR PO ONE (16:15)
[2021-03-20] MEDS ORDERED: ASPirin-EC 81 mg tab PO ONE ×2 (16:15)
[2021-03-20] MEDS ORDERED: ACETAMINOPHEN 500 MG TAB PO PRN (16:15)
[2021-03-20] MEDS: CARVEDILOL 3.125 MG TAB PO SCH ×2 (18:26→22:24)
[2021-03-20 18:58] LABS: Urine Bacteria FEW /hpf (None Seen); Urine Blood 2+ /uL (Negative); Urine Mucus FEW (None Seen); Urine Specific Gravity 1.015 (1.001-1.035); Urine WBC 5 /hpf (0 - 3)
[2021-03-20 20:00] VITALS: BP 160/106
[2021-03-20] MEDS: LABETALOL HCL 5 MG/ML 4ML SYRINGE IV PRN (20:48)
[2021-03-20 21:02] VITALS: BP 160/106
[2021-03-20 21:23] VITALS: BP 160/106
[2021-03-20 22:00] VITALS: BP 160/106
[2021-03-20] MEDS: MORPHINE SULF INJ 2 MG/ML SYRINGE 1ML IV PRN (22:12)
[2021-03-20] MEDS: DOCUSATE SOD 100 MG CAP PO SCH (22:23)
[2021-03-20] MEDS: hydrALAZINE HCL 25 MG TAB PO SCH (22:23)
[2021-03-20] MEDS: LACTULOSE 20Gm/30ML SOLN PO SCH (22:23)
[2021-03-20] MEDS: ATORVASTATIN 20 MG TAB PO SCH (22:24)
[2021-03-21] VITALS (7 sets, daily range): BP systolic 132–164; BP diastolic 82–110
[2021-03-21] MEDS: MORPHINE SULF INJ 2 MG/ML SYRINGE 1ML IV PRN ×5 (02:15→22:23)
[2021-03-21] MEDS: LABETALOL HCL 5 MG/ML 4ML SYRINGE IV PRN ×2 (02:15→06:36)
[2021-03-21] MEDS: LACTULOSE 20Gm/30ML SOLN PO SCH ×4 (06:00→22:00)
[2021-03-21] MEDS: hydrALAZINE HCL 25 MG TAB PO SCH (09:27)
[2021-03-21] MEDS: DOCUSATE SOD 100 MG CAP PO SCH ×2 (09:27→22:00)
[2021-03-21] MEDS: FAMOTIDINE 20 MG TAB PO SCH (09:28)
[2021-03-21] MEDS: CARVEDILOL 3.125 MG TAB PO SCH (09:28)
[2021-03-21] MEDS: ASPirin-EC 81 mg tab PO SCH (09:28)
[2021-03-21] MEDS ORDERED: hydrALAZINE HCL 20 MG/ML VL IV PRN (10:00)
[2021-03-21] MEDS ORDERED: FUROSEMIDE 20 MG TAB PO SCH (10:00)
[2021-03-21] MEDS ORDERED: NIFEdipine ER 30 MG TAB PO ONE (10:15)
[2021-03-21] MEDS ORDERED: NICOTINE 21MG/24 HR TOPICAL PATCH TD ONE (10:30)
[2021-03-21 11:13] LABS: Basophils # (auto) 0.1 10 ^3/uL (0-0.2); Basophils % (auto) 0.7 % (0.0-2.0); Eosinophils # (auto) 0.5 10 ^3/uL (0-0.8); Eosinophils % (auto) 5.7 % (0.0-7.0); Hematocrit 35.8 % (41.0-53.0); Hemoglobin 12.2 g/dL (13.5-17.5); Lymphocytes # (auto) 1.4 10 ^3/uL (0.4-5.4); Lymphocytes % (auto) 14.9 % (10.0-50.0); Mean Corpuscular Hemoglobin 29.8 pg (28.0-32.0); Mean Corpuscular Volume 87.6 fL (80.0-100.0); Monocytes # (auto) 0.7 10 ^3/uL (0-1.3); Monocytes % (auto) 7.4 % (0.0-12.0); Neutrophils # (auto) 6.8 10 ^3/uL (1.6-8.6); Neutrophils % (auto) 71.3 % (37.0-80.0); Nucleated Red Blood Cells % 0.1 %; Red Blood Cells 4.09 10^6/uL (4.5-5.90); Red Cell Distribution Width 15.5 % (11.8-14.3); White Blood Cell 9.6 10^3/uL (4.4-10.8)
[2021-03-21 11:20] LABS: Albumin 2.5 g/dL (3.4-5.0); Calcium 7.6 mg/dL (8.5-10.1); Potassium 3.1 mmol/L (3.5-5.1)
[2021-03-21 11:25] LABS: BUN/Creatinine Ratio 9.8; Bilirubin, Total 0.4 mg/dL (0.2-1.0); Total Protein 5.8 g/dL (6.4-8.2)
[2021-03-21] MEDS ORDERED: POTASSIUM CHL 20 Meq TABLET PO ONE (14:30)
[2021-03-21] MEDS: ATORVASTATIN 20 MG TAB PO SCH (22:17)
[2021-03-21] MEDS: CARVEDILOL 12.5 MG TAB PO SCH (22:17)
[2021-03-22] MEDS: MORPHINE SULF INJ 2 MG/ML SYRINGE 1ML IV PRN ×5 (04:03→22:29)
[2021-03-22 05:00] VITALS: BP 120/89
[2021-03-22] MEDS: LACTULOSE 20Gm/30ML SOLN PO SCH ×3 (05:33→21:33)
[2021-03-22 08:00] VITALS: BP 144/97
[2021-03-22 08:05] LABS: Basophils # (auto) 0.1 10 ^3/uL (0-0.2); Eosinophils # (auto) 0.6 10 ^3/uL (0-0.8); Hemoglobin 13.7 g/dL (13.5-17.5); Monocytes # (auto) 0.5 10 ^3/uL (0-1.3); White Blood Cell 8.4 10^3/uL (4.4-10.8)
[2021-03-22 08:06] LABS: Basophils % (auto) 0.8 % (0.0-2.0); Eosinophils % (auto) 6.8 % (0.0-7.0); Hematocrit 39.1 % (41.0-53.0); Lymphocytes # (auto) 1.2 10 ^3/uL (0.4-5.4); Lymphocytes % (auto) 14.3 % (10.0-50.0); Mean Corpuscular Hemoglobin 30.5 pg (28.0-32.0); Mean Corpuscular Hgb Conc. 34.9 g/dL (32.0-36.0); Mean Corpuscular Volume 87.3 fL (80.0-100.0); Monocytes % (auto) 6.3 % (0.0-12.0); Neutrophils % (auto) 71.8 % (37.0-80.0); Nucleated Red Blood Cells % 0.2 %; Red Blood Cells 4.48 10^6/uL (4.5-5.90); Red Cell Distribution Width 15.3 % (11.8-14.3)
[2021-03-22 08:15] VITALS: BP 144/97
[2021-03-22 08:21] LABS: Albumin 2.7 g/dL (3.4-5.0); BUN/Creatinine Ratio 10.5; Calcium 8.2 mg/dL (8.5-10.1); Potassium 3.5 mmol/L (3.5-5.1)
[2021-03-22 08:24] LABS: Bilirubin, Total 0.4 mg/dL (0.2-1.0); Phosphorus 2.8 mg/dL (2.5-4.90); Total Protein 6.7 g/dL (6.4-8.2)
[2021-03-22] MEDS: AMIODARONE HCL 200 MG TAB PO SCH (09:33)
[2021-03-22] MEDS: POTASSIUM CHL 20 Meq TABLET PO SCH (09:33)
[2021-03-22] MEDS: DOCUSATE SOD 100 MG CAP PO SCH ×2 (09:33→21:34)
[2021-03-22] MEDS: ASPirin-EC 81 mg tab PO SCH (09:33)
[2021-03-22] MEDS: CARVEDILOL 12.5 MG TAB PO SCH ×2 (09:33→22:00)
[2021-03-22] MEDS: NIFEdipine ER 30 MG TAB PO SCH (09:34)
[2021-03-22] MEDS: FAMOTIDINE 20 MG TAB PO SCH (09:34)
[2021-03-22] MEDS: NICOTINE 21MG/24 HR TOPICAL PATCH TD SCH (09:35)
[2021-03-22] MEDS ORDERED: FUROSEMIDE 40 MG TAB PO SCH (10:00)
[2021-03-22 13:00] VITALS: BP 135/91
[2021-03-22] MEDS ORDERED: POTASSIUM CHLORIDE 8 MEQ TAB PO ONE (13:30)
[2021-03-22] MEDS ORDERED: FUROSEMIDE 20 MG/2 ML VIAL IV ONE (13:30)
[2021-03-22] MEDS: HYDROcodone-ACET 10/325MG TAB PO PRN (16:40)
[2021-03-22 16:44] VITALS: BP 130/87
[2021-03-22 20:00] VITALS: BP 135/86
[2021-03-22] MEDS: ATORVASTATIN 20 MG TAB PO SCH (21:34)
[2021-03-23] MEDS: MORPHINE SULF INJ 2 MG/ML SYRINGE 1ML IV PRN ×3 (04:39→17:38)
[2021-03-23 05:00] VITALS: BP 141/86
[2021-03-23] MEDS: LACTULOSE 20Gm/30ML SOLN PO SCH (06:00)
[2021-03-23 06:17] LABS: Basophils # (auto) 0.1 10 ^3/uL (0-0.2); Basophils % (auto) 0.7 % (0.0-2.0); Eosinophils # (auto) 0.6 10 ^3/uL (0-0.8); Eosinophils % (auto) 7.5 % (0.0-7.0); Hemoglobin 13.4 g/dL (13.5-17.5); Lymphocytes # (auto) 1.3 10 ^3/uL (0.4-5.4); Lymphocytes % (auto) 17.9 % (10.0-50.0); Mean Corpuscular Hgb Conc. 34.3 g/dL (32.0-36.0); Mean Corpuscular Volume 90.4 fL (80.0-100.0); Monocytes # (auto) 0.5 10 ^3/uL (0-1.3); Neutrophils % (auto) 66.9 % (37.0-80.0); Nucleated Red Blood Cells % 0.1 %; Red Blood Cells 4.31 10^6/uL (4.5-5.90); Red Cell Distribution Width 15.6 % (11.8-14.3); White Blood Cell 7.5 10^3/uL (4.4-10.8)
[2021-03-23 06:52] LABS: Potassium 3.5 mmol/L (3.5-5.1)
[2021-03-23 07:04] LABS: Albumin 2.8 g/dL (3.4-5.0); BUN/Creatinine Ratio 11.9; Bilirubin, Total 0.8 mg/dL (0.2-1.0); Calcium 8.1 mg/dL (8.5-10.1); Total Protein 6.1 g/dL (6.4-8.2)
[2021-03-23 08:00] VITALS: BP 150/86
[2021-03-23] MEDS: FUROSEMIDE 20 MG/2 ML VIAL IV SCH (09:34)
[2021-03-23] MEDS: DOCUSATE SOD 100 MG CAP PO SCH ×2 (09:34→21:05)
[2021-03-23] MEDS: AMIODARONE HCL 200 MG TAB PO SCH (09:34)
[2021-03-23] MEDS: CARVEDILOL 12.5 MG TAB PO SCH ×2 (09:35→21:05)
[2021-03-23] MEDS: POTASSIUM CHL 20 Meq TABLET PO SCH (09:35)
[2021-03-23] MEDS: FAMOTIDINE 20 MG TAB PO SCH (09:35)
[2021-03-23] MEDS: NIFEdipine ER 30 MG TAB PO SCH (09:35)
[2021-03-23] MEDS: ASPirin-EC 81 mg tab PO SCH (09:35)
[2021-03-23] MEDS: HYDROcodone-ACET 10/325MG TAB PO PRN (09:41)
[2021-03-23] MEDS: NICOTINE 21MG/24 HR TOPICAL PATCH TD SCH (09:48)
[2021-03-23] MEDS ORDERED: POTASSIUM CHLORIDE 8 MEQ TAB PO SCH (10:00)
[2021-03-23 13:00] VITALS: BP 138/92
[2021-03-23 13:20] VITALS: BP 138/92
[2021-03-23] MEDS: ALLOPURINOL 300 MG TAB PO SCH (14:10)
[2021-03-23 16:57] VITALS: BP 141/85
[2021-03-23] MEDS: ATORVASTATIN 20 MG TAB PO SCH (21:05)
[2021-03-23 22:00] VITALS: BP 139/85
[2021-03-24] MEDS: MORPHINE SULF INJ 2 MG/ML SYRINGE 1ML IV PRN ×2 (03:53→08:33)
[2021-03-24 05:00] VITALS: BP 135/86
[2021-03-24] MEDS: HYDROcodone-ACET 10/325MG TAB PO PRN (06:17)
[2021-03-24 08:55] VITALS: BP 153/97
[2021-03-24] MEDS: DOCUSATE SOD 100 MG CAP PO SCH (10:00)
[2021-03-24] MEDS: ALLOPURINOL 300 MG TAB PO SCH (10:01)
[2021-03-24] MEDS: POTASSIUM CHL 20 Meq TABLET PO SCH (10:01)
[2021-03-24] MEDS: ASPirin-EC 81 mg tab PO SCH (10:01)
[2021-03-24] MEDS: AMIODARONE HCL 200 MG TAB PO SCH (10:02)
[2021-03-24] MEDS: NICOTINE 21MG/24 HR TOPICAL PATCH TD SCH (10:03)
[2021-03-24] MEDS: NIFEdipine ER 30 MG TAB PO SCH (10:03)
[2021-03-24] MEDS: FUROSEMIDE 20 MG/2 ML VIAL IV SCH (10:04)
[2021-03-24] MEDS: CARVEDILOL 12.5 MG TAB PO SCH ×2 (10:17→15:00)
[2021-03-24] MEDS: FAMOTIDINE 20 MG TAB PO SCH (10:19)
[2021-03-24 12:56] VITALS: BP 136/85
[2021-03-24 13:00] VITALS: BP 136/85
== END 2021-03-24 15:15 | disposition home or self-care (01) | DRG 190 ==
LOC: ER 11:14 → TELE 16:15 → EDUNIT# 16:15 → TELE-WESTW 18:52
PROVIDERS: ADMIT Nurse Practitioner Acute Care; ATTEND Internal Medicine
PROC: 0W9B30Z Drainage of Left Pleural Cavity with Drainage Device, Percutaneous Approach (ICD-10-PCS; principal; 2021-03-22)
DX: I21.4 Non-ST elevation (NSTEMI) myocardial infarction (principal); N17.0 Acute kidney failure with tubular necrosis; I50.21 Acute systolic (congestive) heart failure; J91.8 Pleural effusion in other conditions classified elsewhere; N18.4 Chronic kidney disease, stage 4 (severe); E11.22 Type 2 diabetes mellitus with diabetic chronic kidney disease; I42.2 Other hypertrophic cardiomyopathy; J93.9 Pneumothorax, unspecified; I16.9 Hypertensive crisis, unspecified; J44.9 Chronic obstructive pulmonary disease, unspecified; E87.6 Hypokalemia; K59.00 Constipation, unspecified; E78.5 Hyperlipidemia, unspecified; D63.1 Anemia in chronic kidney disease; F17.210 Nicotine dependence, cigarettes, uncomplicated; Z20.822 Contact with and (suspected) exposure to COVID-19; E79.0 Hyperuricemia without signs of inflammatory arthritis and tophaceous disease; I47.1 Supraventricular tachycardia; I13.0 Hypertensive heart and chronic kidney disease with heart failure and stage 1 through stage 4 chronic kidney disease, or unspecified chronic kidney disease; I25.10 Atherosclerotic heart disease of native coronary artery without angina pectoris; I25.2 Old myocardial infarction; Z82.49 Family history of ischemic heart disease and other diseases of the circulatory system; Z83.3 Family history of diabetes mellitus; Z85.528 Personal history of other malignant neoplasm of kidney; Z86.73 Personal history of transient ischemic attack (TIA), and cerebral infarction without residual deficits; Z90.5 Acquired absence of kidney; Z95.810 Presence of automatic (implantable) cardiac defibrillator; Z79.899 Other long term (current) drug therapy
CPT/HCPCS: 36415; 71045; 71250; 74176; 76775; 76942; 80053; 81001; 82306; 82570; 83735; 83880; 83970; 84100; 84156; 84300; 84443; 84484; 84550; 85025; 85049; 85379; 85610; 85730; 86141; 87070; 87081; 87205; 87426; 89051; 93005; 93306; 96361; 96374; G0378; J2405; J3490

== ENCOUNTER 2021-07-13 11:01 | Inpatient (IN) | payer BC, MEDICAID ==
[~2021-07-13] VITALS: Ht 172.7 cm; Wt 64.4 kg
[~2021-07-13 11:01] MED LIST changes: -CARV25TA55 PO
[2021-07-13] MEDS ORDERED: ASPirin 81 mg TAB PO ONE (11:30)
[2021-07-13] MEDS ORDERED: ONDANSETRON HCL 4 MG/2 ML VIAL IV ONE (11:30)
[2021-07-13] MEDS ORDERED: MORPHINE SULFATE 4 MG/ML SYR/VIAL IV ONE (11:30)
[2021-07-13 11:56] LABS: Basophils # (auto) 0.1 10 ^3/uL (0-0.2); Eosinophils # (auto) 0.1 10 ^3/uL (0-0.8); Eosinophils % (auto) 0.8 % (0.0-7.0); Lymphocytes # (auto) 0.9 10 ^3/uL (0.4-5.4); Mean Corpuscular Volume 90.2 fL (80.0-100.0); Neutrophils # (auto) 7.5 10 ^3/uL (1.6-8.6)
[2021-07-13 11:59] LABS: Basophils % (auto) 1.1 % (0.0-2.0); Hematocrit 54.2 % (41.0-53.0); Hemoglobin 18.3 g/dL (13.5-17.5); Lymphocytes % (auto) 9.9 % (10.0-50.0); Mean Corpuscular Hemoglobin 30.5 pg (28.0-32.0); Mean Corpuscular Hgb Conc. 33.8 g/dL (32.0-36.0); Monocytes # (auto) 0.5 10 ^3/uL (0-1.3); Monocytes % (auto) 5.5 % (0.0-12.0); Neutrophils % (auto) 82.7 % (37.0-80.0); Nucleated Red Blood Cells % 0.3 %; Red Blood Cells 6.01 10^6/uL (4.5-5.90); Red Cell Distribution Width 16.2 % (11.8-14.3)
[2021-07-13 12:11] LABS: Albumin 3.6 g/dL (3.4-5.0); Calcium 9.1 mg/dL (8.5-10.1); Magnesium 2.4 mg/dL (1.6-2.6); Potassium 4.5 mmol/L (3.5-5.1)
[2021-07-13 12:22] LABS: BUN/Creatinine Ratio 9.8; Bilirubin, Total 0.8 mg/dL (0.2-1.0); Total Protein 8.7 g/dL (6.4-8.2)
[2021-07-13] MEDS ORDERED: MORPHINE SULFATE INJECTION 2 MG/ML SYRG IV PRN (16:15)
[2021-07-13] MEDS ORDERED: ACETAMINOPHEN 325 MG TAB PO PRN (16:15)
[2021-07-13] MEDS ORDERED: NITROGLYCERIN 0.4 MG SL TAB SL PRN (16:15)
[2021-07-13] MEDS ORDERED: MORPHINE SULFATE 4 MG/ML SYR/VIAL IV PRN (16:15)
[2021-07-13] MEDS ORDERED: DOCUSATE SOD 100 MG CAP PO PRN (16:15)
[2021-07-13] MEDS ORDERED: HYDROcodone-ACET 5/325MG TAB PO PRN (16:15)
[2021-07-13] MEDS ORDERED: ONDANSETRON HCL 4 MG/2 ML VIAL IV PRN (16:15)
[2021-07-13] MEDS ORDERED: TEMAZEPAM 15 MG CAP PO PRN (16:15)
[2021-07-13] MEDS: AMIODARONE HCL 200 MG TAB PO SCH (23:50)
[2021-07-14] VITALS: BP 148/105
[2021-07-14] MEDS: CARVEDILOL 12.5 MG TAB PO SCH ×4 (00:03→21:18)
[2021-07-14] MEDS ORDERED: CAR125T PO (00:46)
[2021-07-14] MEDS ORDERED: ASPI325T4 PO (00:46)
[2021-07-14] MEDS ORDERED: AMIO200T33 PO (00:46)
[2021-07-14] MEDS ORDERED: NIFE1TAB31 PO (00:46)
[2021-07-14 05:12] VITALS: BP 146/97
[2021-07-14 07:44] LABS: Basophils # (auto) 0.1 10 ^3/uL (0-0.2); Eosinophils # (auto) 0.1 10 ^3/uL (0-0.8); Eosinophils % (auto) 1.7 % (0.0-7.0); Hematocrit 47.1 % (41.0-53.0); Hemoglobin 16.3 g/dL (13.5-17.5); Lymphocytes # (auto) 1.1 10 ^3/uL (0.4-5.4); Lymphocytes % (auto) 13.9 % (10.0-50.0); Mean Corpuscular Hemoglobin 30.7 pg (28.0-32.0); Mean Corpuscular Hgb Conc. 34.6 g/dL (32.0-36.0); Mean Corpuscular Volume 88.9 fL (80.0-100.0); Monocytes # (auto) 0.7 10 ^3/uL (0-1.3); Monocytes % (auto) 8.7 % (0.0-12.0); Neutrophils # (auto) 5.8 10 ^3/uL (1.6-8.6); Neutrophils % (auto) 74.7 % (37.0-80.0); Nucleated Red Blood Cells % 0.1 %; Red Cell Distribution Width 15.8 % (11.8-14.3); White Blood Cell 7.7 10^3/uL (4.4-10.8)
[2021-07-14 07:53] LABS: Albumin 2.8 g/dL (3.4-5.0); BUN/Creatinine Ratio 11.9; Calcium 8.4 mg/dL (8.5-10.1); Potassium 3.8 mmol/L (3.5-5.1)
[2021-07-14 07:58] LABS: Bilirubin, Total 0.5 mg/dL (0.2-1.0)
[2021-07-14 09:00] VITALS: BP 122/86
[2021-07-14] MEDS: AMIODARONE HCL 200 MG TAB PO SCH (09:42)
[2021-07-14] MEDS: NIFEdipine ER 30 MG TAB PO SCH (09:43)
[2021-07-14] MEDS: ENOXAPARIN SOD 30 MG/0.3 ML SYRINGE SC SCH (09:43)
[2021-07-14 13:00] VITALS: BP 135/91
[2021-07-14 16:52] VITALS: BP 128/82
[2021-07-14] MEDS ORDERED: NICOTINE 21MG/24 HR TOPICAL PATCH TD ONE (17:30)
[2021-07-14] MEDS ORDERED: TAMSULOSIN HYDROCHLORIDE 0.4 MG CAP PO SCH (18:00)
[2021-07-14 18:34] LABS: Urine Bacteria FEW /hpf (None Seen); Urine Blood TRACE /uL (Negative); Urine Specific Gravity 1.014 (1.001-1.035); Urine WBC <1 /hpf (0 - 3)
[2021-07-14] MEDS ORDERED: ATORVASTATIN 20 MG TAB PO SCH (22:00)
[2021-07-14 22:09] VITALS: BP 117/85
[2021-07-15 05:12] VITALS: BP 135/95
[2021-07-15] MEDS: CARVEDILOL 12.5 MG TAB PO SCH ×2 (05:39→14:05)
[2021-07-15 06:23] LABS: BUN/Creatinine Ratio 12.6; Calcium 8.1 mg/dL (8.5-10.1); Potassium 3.7 mmol/L (3.5-5.1)
[2021-07-15 08:34] VITALS: BP 133/81
[2021-07-15] MEDS: AMIODARONE HCL 200 MG TAB PO SCH (09:30)
[2021-07-15] MEDS: ENOXAPARIN SOD 30 MG/0.3 ML SYRINGE SC SCH (09:31)
[2021-07-15] MEDS: NIFEdipine ER 30 MG TAB PO SCH (09:31)
[2021-07-15] MEDS ORDERED: FUROSEMIDE 40 MG TAB PO SCH (10:00)
[2021-07-15] MEDS ORDERED: ASPirin 81 mg TAB PO SCH (10:00)
[2021-07-15] MEDS ORDERED: NICOTINE 21MG/24 HR TOPICAL PATCH TD SCH (10:00)
[2021-07-15 12:40] VITALS: BP 132/97
[2021-07-15 15:54] LABS: Protein, Urine 94.8 mg/dL (0.0-11.9)
[2021-07-15 16:51] VITALS: BP 133/92
[2021-07-15 16:54] VITALS: BP 132/97
== END 2021-07-15 18:00 | disposition home or self-care (01) | DRG 305 ==
LOC: ER 11:01 → TELE 16:04 → TELE-WESTW 23:18
PROVIDERS: ADMIT Nurse Practitioner; ATTEND Nurse Practitioner
PROC: 05HA33Z Insertion of Infusion Device into Left Brachial Vein, Percutaneous Approach (ICD-10-PCS; principal; 2021-07-14)
PROC: B54NZZA Ultrasonography of Left Upper Extremity Veins, Guidance (ICD-10-PCS; 2021-07-14)
DX: I16.9 Hypertensive crisis, unspecified (principal); N18.4 Chronic kidney disease, stage 4 (severe); I50.32 Chronic diastolic (congestive) heart failure; N17.9 Acute kidney failure, unspecified; R07.89 Other chest pain; I13.0 Hypertensive heart and chronic kidney disease with heart failure and stage 1 through stage 4 chronic kidney disease, or unspecified chronic kidney disease; E78.5 Hyperlipidemia, unspecified; J43.9 Emphysema, unspecified; F17.210 Nicotine dependence, cigarettes, uncomplicated; Z20.822 Contact with and (suspected) exposure to COVID-19; I25.10 Atherosclerotic heart disease of native coronary artery without angina pectoris; Z85.528 Personal history of other malignant neoplasm of kidney; Z79.82 Long term (current) use of aspirin; Z82.49 Family history of ischemic heart disease and other diseases of the circulatory system; Z83.3 Family history of diabetes mellitus; Z86.73 Personal history of transient ischemic attack (TIA), and cerebral infarction without residual deficits; Z90.5 Acquired absence of kidney; Z95.810 Presence of automatic (implantable) cardiac defibrillator
CPT/HCPCS: 36415; 71046; 76775; 80048; 80053; 81001; 82570; 83735; 83880; 84156; 84484; 85025; 87426; 93005; 99291; G0378

== ENCOUNTER 2022-04-09 07:42 | Inpatient (IN) | payer BC, MEDICAID ==
[~2022-04-09] VITALS: Ht 172.7 cm; Wt 63.5 kg
[~2022-04-09 07:42] MED LIST changes: +AMIO200T33 PO; +ASPI-543 PO; +ASPI325T4 PO; +CAR125T PO; +CARV25TA55 PO; +NIFE1TAB31 PO
[2022-04-09] MEDS ORDERED: LABETALOL HCL 5 MG/ML 4ML SYRINGE IV ONE (08:00)
[2022-04-09 08:17] LABS: Basophils # (auto) 0 10 ^3/uL (0-0.2); Basophils % (auto) 0.3 % (0.0-2.0); Eosinophils # (auto) 0 10 ^3/uL (0-0.8); Eosinophils % (auto) 0.3 % (0.0-7.0); Hematocrit 50.2 % (41.0-53.0); Hemoglobin 16.7 g/dL (13.5-17.5); Lymphocytes # (auto) 0.9 10 ^3/uL (0.4-5.4); Lymphocytes % (auto) 9.9 % (10.0-50.0); Mean Corpuscular Hemoglobin 30.5 pg (28.0-32.0); Mean Corpuscular Hgb Conc. 33.4 g/dL (32.0-36.0); Mean Corpuscular Volume 91.5 fL (80.0-100.0); Monocytes # (auto) 0.3 10 ^3/uL (0-1.3); Monocytes % (auto) 2.9 % (0.0-12.0); Neutrophils # (auto) 7.6 10 ^3/uL (1.6-8.6); Neutrophils % (auto) 86.6 % (37.0-80.0); Nucleated Red Blood Cells % 0.2 %; Red Blood Cells 5.48 10^6/uL (4.5-5.90); Red Cell Distribution Width 14.7 % (11.8-14.3); White Blood Cell 8.8 10^3/uL (4.4-10.8)
[2022-04-09 08:35] LABS: Potassium 3.4 mmol/L (3.5-5.1)
[2022-04-09 08:43] LABS: Albumin 3.5 g/dL (3.4-5.0); BUN/Creatinine Ratio 7.7; Bilirubin, Total 0.6 mg/dL (0.2-1.0); Calcium 9.2 mg/dL (8.5-10.1); Magnesium 2.3 mg/dL (1.6-2.6); Total Protein 7.8 g/dL (6.4-8.2)
[2022-04-09] MEDS ORDERED: hydrALAZINE HCL 20 MG/ML VL IV ONE (10:00)
[2022-04-09] MEDS ORDERED: ONDANSETRON HCL 4 MG/2 ML VIAL IV ONE (10:00)
[2022-04-09 10:02] LABS: Urine Bacteria NONE SEEN /hpf (None Seen); Urine Blood 1+ /uL (Negative); Urine Specific Gravity 1.014 (1.001-1.035); Urine WBC 3 /hpf (0 - 3)
[2022-04-09] MEDS ORDERED: ATOR40TA52 PO (10:20)
[2022-04-09] MEDS ORDERED: TAMS0.4C36 PO (10:21)
[2022-04-09] MEDS ORDERED: POTASSIUM CHL 20 Meq TABLET PO ONE (11:30)
[2022-04-09 12:23] VITALS: BP 184/100
[2022-04-09 12:41] LABS: Magnesium 2.2 mg/dL (1.6-2.6); Phosphorus 2.5 mg/dL (2.5-4.90)
[2022-04-09] MEDS: hydrALAZINE HCL 20 MG/ML VL IV PRN ×2 (13:22→20:08)
[2022-04-09 14:00] LABS: Protein, Urine 802.2 mg/dL (0.0-11.9)
[2022-04-09] MEDS ORDERED: MORPHINE SULFATE 4 MG/ML SYR/VIAL IV PRN (14:30)
[2022-04-09 15:31] VITALS: BP 182/117
[2022-04-09] MEDS: NITROGLYCERIN 0.4 MG SL TAB SL PRN ×3 (15:31→15:50)
[2022-04-09 15:39] VITALS: BP 171/117
[2022-04-09 15:49] VITALS: BP 169/109
[2022-04-09 15:56] VITALS: BP 174/104
[2022-04-09] MEDS ORDERED: NIFEdipine ER 30 MG TAB PO ONE (17:30)
[2022-04-09] MEDS: ACETAMINOPHEN 325 MG TAB PO PRN (18:16)
[2022-04-09] MEDS ORDERED: ONDANSETRON HCL 4 MG/2 ML VIAL IV PRN (19:00)
[2022-04-09] MEDS ORDERED: amLODIPine BESYLATE 5 MG TAB PO ONE (21:15)
[2022-04-09 21:32] VITALS: BP 209/129
[2022-04-09] MEDS: metroNIDAZOLE 500MG/100ML 100 ML IV SCH (22:22)
[2022-04-09] MEDS: CARVEDILOL 12.5 MG TAB PO SCH (22:23)
[2022-04-09] MEDS: ATORVASTATIN 20 MG TAB PO SCH (22:23)
[2022-04-09] MEDS: MORPHINE SULFATE INJ 2 MG/ml SYRG IV PRN (22:24)
[2022-04-10 05:00] VITALS: BP 113/69
[2022-04-10] MEDS: metroNIDAZOLE 500MG/100ML 100 ML IV SCH ×3 (05:49→22:26)
[2022-04-10 05:55] LABS: Basophils # (auto) 0 10 ^3/uL (0-0.2); Basophils % (auto) 0.4 % (0.0-2.0); Eosinophils # (auto) 0 10 ^3/uL (0-0.8); Hematocrit 51.4 % (41.0-53.0); Hemoglobin 17.6 g/dL (13.5-17.5); Lymphocytes % (auto) 8.4 % (10.0-50.0); Mean Corpuscular Hemoglobin 30.8 pg (28.0-32.0); Mean Corpuscular Hgb Conc. 34.2 g/dL (32.0-36.0); Mean Corpuscular Volume 90.1 fL (80.0-100.0); Monocytes # (auto) 0.6 10 ^3/uL (0-1.3); Monocytes % (auto) 4.9 % (0.0-12.0); Neutrophils # (auto) 10.7 10 ^3/uL (1.6-8.6); Neutrophils % (auto) 86.3 % (37.0-80.0); Nucleated Red Blood Cells % 0.4 %; Red Cell Distribution Width 14.8 % (11.8-14.3); White Blood Cell 12.4 10^3/uL (4.4-10.8)
[2022-04-10 06:14] LABS: Anion Gap 9 (5-15); BUN/Creatinine Ratio 8.8; Blood Urea Nitrogen 29 mg/dL (7-18); Calcium 9.2 mg/dL (8.5-10.1); Carbon Dioxide 18 mmol/L (21-32); Chloride 113 mmol/L (98-107); GFR African American 25 mL/min; GFR Non-African American 21 mL/min; Glucose 115 mg/dL (74-106); Sodium 140 mmol/L (136-145)
[2022-04-10 09:00] VITALS: BP 132/88
[2022-04-10] MEDS ORDERED: NIFEdipine ER 30 MG TAB PO SCH (10:00)
[2022-04-10] MEDS ORDERED: levoFLOXacin 500MG 100 ML IV SCH (10:00)
[2022-04-10] MEDS: AMIODARONE HCL 200 MG TAB PO SCH (11:41)
[2022-04-10] MEDS: CARVEDILOL 12.5 MG TAB PO SCH ×2 (11:42→22:36)
[2022-04-10] MEDS: ASPirin-EC 81 mg tab PO SCH (11:42)
[2022-04-10] MEDS: NIFEdipine ER 30 MG TAB PO SCH (11:43)
[2022-04-10] MEDS: SODIUM BICARBONATE 650 MG TAB PO SCH ×3 (11:43→22:27)
[2022-04-10 13:00] VITALS: BP 139/98
[2022-04-10 17:00] VITALS: BP 139/87
[2022-04-10 22:00] VITALS: BP 129/75
[2022-04-10] MEDS: ATORVASTATIN 20 MG TAB PO SCH (22:27)
[2022-04-11] MEDS: MORPHINE SULFATE INJ 2 MG/ml SYRG IV PRN (00:28)
[2022-04-11 05:11] VITALS: BP 116/75
[2022-04-11] MEDS: metroNIDAZOLE 500MG/100ML 100 ML IV SCH ×2 (06:00→14:12)
[2022-04-11 06:33] LABS: Basophils # (auto) 0 10 ^3/uL (0-0.2); Basophils % (auto) 0.5 % (0.0-2.0); Eosinophils # (auto) 0.2 10 ^3/uL (0-0.8); Eosinophils % (auto) 1.8 % (0.0-7.0); Hemoglobin 14.8 g/dL (13.5-17.5); Lymphocytes # (auto) 1.4 10 ^3/uL (0.4-5.4); Lymphocytes % (auto) 15.4 % (10.0-50.0); Mean Corpuscular Hgb Conc. 35.3 g/dL (32.0-36.0); Mean Corpuscular Volume 90.6 fL (80.0-100.0); Monocytes # (auto) 0.7 10 ^3/uL (0-1.3); Monocytes % (auto) 7.3 % (0.0-12.0); Nucleated Red Blood Cells % 0.1 %; Red Blood Cells 4.63 10^6/uL (4.5-5.90); White Blood Cell 9.3 10^3/uL (4.4-10.8)
[2022-04-11 06:38] LABS: Potassium 3.4 mmol/L (3.5-5.1)
[2022-04-11] MEDS: SODIUM BICARBONATE 650 MG TAB PO SCH ×2 (06:38→14:12)
[2022-04-11 06:41] LABS: BUN/Creatinine Ratio 10.9
[2022-04-11 09:00] VITALS: BP 116/73
[2022-04-11] MEDS: AMIODARONE HCL 200 MG TAB PO SCH (10:02)
[2022-04-11] MEDS: ASPirin-EC 81 mg tab PO SCH (10:03)
[2022-04-11] MEDS: NIFEdipine ER 30 MG TAB PO SCH (10:03)
[2022-04-11] MEDS: CARVEDILOL 12.5 MG TAB PO SCH (10:03)
[2022-04-11] MEDS: ACETAMINOPHEN 325 MG TAB PO PRN (10:04)
[2022-04-11] MEDS ORDERED: CARV25TA55 PO (10:55)
[2022-04-11] MEDS ORDERED: SODI650T PO (10:55)
[2022-04-11] MEDS ORDERED: METR500T PO (10:55)
[2022-04-11] MEDS ORDERED: ONDA-144 PO (10:55)
[2022-04-11] MEDS ORDERED: FURO1TAB31 PO (10:55)
[2022-04-11] MEDS ORDERED: AMOXICILLIN/CLAVUL 875 MG TAB PO ONE (11:05)
[2022-04-11 11:59] LABS: Hepatitis C Antibody Negative (Negative)
[2022-04-11 13:00] VITALS: BP 102/74
[2022-04-11 18:02] VITALS: BP 106/66
[2022-04-11 18:08] VITALS: BP 119/78
== END 2022-04-11 20:45 | disposition home or self-care (01) | DRG 391 ==
LOC: ER 07:42 → EDBD 07:42 → TELE-WESTW 10:04 → OBSVTOIN 04-11 11:23
PROVIDERS: ADMIT Internal Medicine; ATTEND Internal Medicine
PROC: 05H933Z Insertion of Infusion Device into Right Brachial Vein, Percutaneous Approach (ICD-10-PCS; principal; 2022-04-11)
PROC: B54MZZA Ultrasonography of Right Upper Extremity Veins, Guidance (ICD-10-PCS; 2022-04-11)
DX: K57.32 Diverticulitis of large intestine without perforation or abscess without bleeding (principal); I50.43 Acute on chronic combined systolic (congestive) and diastolic (congestive) heart failure; N18.4 Chronic kidney disease, stage 4 (severe); K62.5 Hemorrhage of anus and rectum; I13.0 Hypertensive heart and chronic kidney disease with heart failure and stage 1 through stage 4 chronic kidney disease, or unspecified chronic kidney disease; N17.9 Acute kidney failure, unspecified; I16.0 Hypertensive urgency; E87.6 Hypokalemia; N40.0 Benign prostatic hyperplasia without lower urinary tract symptoms; I25.10 Atherosclerotic heart disease of native coronary artery without angina pectoris; E66.01 Morbid (severe) obesity due to excess calories; Z20.822 Contact with and (suspected) exposure to COVID-19; F12.90 Cannabis use, unspecified, uncomplicated; E78.5 Hyperlipidemia, unspecified; F17.210 Nicotine dependence, cigarettes, uncomplicated; I25.2 Old myocardial infarction; Z63.72 Alcoholism and drug addiction in family; Z81.1 Family history of alcohol abuse and dependence; Z82.49 Family history of ischemic heart disease and other diseases of the circulatory system; Z83.3 Family history of diabetes mellitus; Z85.528 Personal history of other malignant neoplasm of kidney; Z86.73 Personal history of transient ischemic attack (TIA), and cerebral infarction without residual deficits; Z90.5 Acquired absence of kidney; Z95.0 Presence of cardiac pacemaker
CPT/HCPCS: 36415; 70450; 71045; 74176; 76775; 80048; 80053; 81001; 82306; 82570; 83036; 83735; 83880; 83970; 84100; 84154; 84156; 84300; 84484; 85025; 86803; 87340; 93005; 93306; 96374; 96375; 99291; G0378; J2405; J3490

== ENCOUNTER 2024-07-07 18:01 | Emergency (ER) | payer BC, MEDICAID ==
[~2024-07-07] VITALS: Ht 172.7 cm; Wt 75.7 kg
[~2024-07-07 18:01] MED LIST changes: -ASPI325T4 PO; +ASPI325T6 PO; +ATOR40TA52 PO; +CIPR0.3S67 OP; +METR500T PO; -NIFE90TA49 PO; +NIFE90TA75 PO; +ONDA-144 PO; +SODI650T PO; +TAMS0.4C39 PO
[2024-07-07 19:53] VITALS: BP 128/91; PULSE 68; RESP 17; TEMP 98.4; O2SAT 98
== END 2024-07-07 21:19 | disposition home or self-care (01) ==
LOC: ER 18:01
DX: S80.01XA Contusion of right knee, initial encounter (principal); I11.0 Hypertensive heart disease with heart failure; I50.9 Heart failure, unspecified; I25.10 Atherosclerotic heart disease of native coronary artery without angina pectoris; Z86.73 Personal history of transient ischemic attack (TIA), and cerebral infarction without residual deficits; F17.210 Nicotine dependence, cigarettes, uncomplicated; Z79.82 Long term (current) use of aspirin; Z79.899 Other long term (current) drug therapy; V43.52XA Car driver injured in collision with other type car in traffic accident, initial encounter; Y92.410 Unspecified street and highway as the place of occurrence of the external cause; Y93.89 Activity, other specified; Y99.8 Other external cause status
CPT/HCPCS: 73564

== ENCOUNTER 2024-11-11 07:21 | Emergency (ER) | payer BC, MEDICAID ==
[~2024-11-11] VITALS: Ht 172.7 cm; Wt 72.5 kg
--- NOTE | 2024-11-11 07:54 | ED.PDOC ---
History of Present Illness HPI Comments 64-year-old male with PMHx HTN presents with a chief complaint of constipation x 3 days with associated nausea and vomiting. Patient reports that his nausea and vomiting have been intermittently occurring for the past x 3 days. Patient mentions that he has not been eating however. Patient denies any abdominal pain at this time. Patient mentions that he also has not been going to restroom for bowel movements for the last x 3 days. Patient does endorse taking Hydrocodone 7.5mg daily. No other symptoms or modifying factors present at this time. Chief Complaint: Constipation Time Seen by MD: 07:48 Primary Care Provider: GRACIE Polk Notes: Medications, Allergies Allergies: Coded Allergies: NO KNOWN ALLERGIES (Unverified , 08/14/20) Home Meds Active Scripts Ciprofloxacin HCl (Ophth) (Ciprofloxacin Hydrochlori) 0.3 % Yanet, 2 DROP OP QID, #5 ML Prov:AIME BERNAL 10/07/23 Ondansetron (Zofran) 4 Mg Tab, 1 TAB PO Q6HR, #20 TAB Prov:KAYLI RIVERA MD 04/11/22 Sodium Bicarbonate (Sodium Bicarbonate) 650 Mg Tab, 650 MG PO TID, #270 TAB Prov:KAYLI RIVERA MD 04/11/22 Metronidazole (Flagyl) 500 Mg Tab, 500 MG PO TID, #30 TAB Prov:KAYLI RIVERA MD 04/11/22 Carvedilol (Carvedilol) 25 Mg Tab, 25 MG PO TID for 30 Days, #90 MG Prov:KAYLI RIVERA MD 04/11/22 Reported Medications Tamsulosin Hcl (Tamsulosin Hcl) 0.4 Mg Cap, 1 CAP PO DAILY, #30 CAP 5 Refills 04/09/22 Atorvastatin Calcium (ATORVASTATIN CALCIUM) 40 Mg Tab, 1 TAB PO QPM, #90 TAB 3 Refills 04/09/22 Nifedipine (Nifedipine Er) 30 Mg Tab, 30 MG PO, TAB 07/14/21 Amiodarone Hcl (Amiodarone Hcl) 200 Mg Tab, 200 MG PO DAILY for 30 Days 07/14/21 Carvedilol (Coreg) 12.5 Mg Tab, 1 TAB PO BID, #180 TAB 1 Refill 07/14/21 Aspirin (Aspirin) 325 Mg Tab, 325 MG PO DAILY for 30 Days, MG 07/14/21 Nifedipine (Nifedipine Er) 90 Mg Tab, 1 TAB PO DAILY, #30 TAB 5 Refills 03/21/21 Amiodarone Hcl (Amiodarone Hcl) 200 Mg Tab, 200 MG PO DAILY for 30 Days 03/21/21 Aspirin (Aspir-Low) 81 Mg Tab, 81 MG PO DAILY for 30 Days, MG 03/20/21 Nifedipine (Nifedipine Er) 90 Mg Tab, 1 TAB PO DAILYPRN 08/19/20 Aspirin (Asa) 81 Mg Ch, 81 MG PO DAILY 08/15/20 Information Source: Patient Mode of Arrival: Ambulatory Severity: Moderate Timing: Days Duration: Since onset Prehospital treatment: None Past Medical History PAST MEDICAL HISTORY: CAD, Cancer, CHF, CKF, CVA, High Lipids, HTN, GA Surgical History: Denies all surgeries Family History Family History: Reviewed,noncontributory to illness, Family hx of DM, Family hx of HTN Social History Smoker: Cigarettes, Less Than 1 Pack/Day Alcohol: Rarely Drugs: Marijuana Lives In: Home Constitutional: denies: chills, diaphoresis, fatigue, fever, malaise, sweats, weakness, others EENTM: denies: blurred vision, double vision, ear bleeding, ear discharge, ear drainage, ear pain, ear ringing, eye pain, eye redness, hearing loss, mouth pain, mouth swelling, nasal discharge, nose bleeding, nose congestion, nose pain, photophobia, tearing, throat pain, throat swelling, voice changes, others Respiratory: denies: cough, hemoptysis, orthopnea, SOB at rest, shortness of breath, SOB with excertion, stridor, wheezing, others Cardiovascular: denies: chest pain, dizzy spells, diaphoresis, Dyspnea on exertion, edema, irregular heart beat, left arm pain, lightheadedness, palpitations, PND, syncope, others Gastrointestinal: reports: constipated, nausea, vomiting; denies: abdomen distended, abdominal pain, blood streaked bowels, diarrhea, dysphagia, difficulty swallowing, hematemesis, melena, poor appetite, poor fluid intake, rectal bleeding, rectal pain, others Genitourinary: denies: burning, dysuria, flank pain, frequency, hematuria, incontinence, penile discharge, penile sore, pain, testicle pain, testicle swelling, urgency, others Neurological: denies: dizziness, fainting, headache, left sided numbness, left sided weakness, numbness, paresthesia, pre-existing deficit, right sided numbness, right sided weakness, seizure, speech problems, tingling, tremors, weakness, others Musculoskeletal: denies: back pain, gout, joint pain, joint swelling, muscle pain, muscle stiffness, neck pain, others Integumetry: denies: bruises, change in color, change in hair/nails, dryness, laceration, lesions, lumps, rash, wounds, others Allergic/Immunocompromised: denies: Difficulty Healing, Frequent Infections, Hives, Itching, others Hematologic/Lymphatic: denies: anemia, blood clots, easy bleeding, easy bruising, swollen glands, others Endocrine: denies: excessive hunger, excessive sweating, excessive thirst, excessive urination, flushing, intolerance to cold, intolerance to heat, unexplained weight gain, unexplained weight loss, others Psychiatric: denies: anxiety, bipolar disorder, depression, hopeless, panic disorder, schizophrenia, sleepless, suicidal, others All Other Systems: Reviewed and Negative Physical Exam General Appearance: Moderate Distress, Normal HEENT: Normal ENT Inspection, Pharynx Normal, TMs Normal Neck: Full Range of Motion, Non-Tender, Normal, Normal Inspection Respiratory: Chest Non-Tender, Lungs Clear, No Accessory Muscle Use, No Respiratory Distress, Normal Breath Sounds Cardiovascular: No Edema, No JVD, No Murmur, No Gallop, Normal Peripheral Pulses, Regular Rate/Rhythm Breast Exam: Deferred Gastrointestinal: No Organomegaly, Non Tender, No Pulsatile Mass, Normal Bowel Sounds, Soft Genitalia: Deferred Pelvic: Deferred Rectal: Deferred Extremities: No calf tenderness, Normal capillary refill, Normal inspection, Normal range of motion, Non-tender, No pedal edema Musculoskeletal : Apperance: Normal Neurologic: Alert, tube test technician II-XII nml as Tested, No Motor Deficits, Normal Affect, Normal Mood, No Sensory Deficits Cerebellar Function: Normal Reflexes: Normal Skin: Dry, Normal Color, Warm Peripheral Pulses: 3+ Radial (R), 3+ Radial (L) Lymphatic: No Adenopathy Was a procedure done? Was a procedure done?: No Differential Dx Considerations may include: Chronic pain syndrome Electrolyte imbalance X-Ray, Labs, Meds, VS Vital Signs Date Time Temp Pulse Resp B/P (MAP) Pulse Ox O2 Delivery O2 Flow Rate FiO2 11/11/24 10:00 68 16 138/95 (109) 98 11/11/24 10:00 68 16 98 Room Air* 0 21 11/11/24 08:24 98.7 69 18 138/89 (105) 96 98.7 11/11/24 08:24 69 18 96 Room Air 11/11/24 08:20 98.7 69 18 138/89 (105) 96 98.7 11/11/24 07:34 98.3 77 16 143/96 (112) 94 Lab Test 11/11/24 08:01 Range/Units White Blood Count 5.8 4.4-10.8 10^3/uL Red Blood Count 5.06 4.5-5.90 10^6/uL Hemoglobin 15.2 13.5-17.5 g/dL Hematocrit 47.0 41.0-53.0 % Mean Corpuscular Volume 92.8 80.0-100.0 fL Mean Corpuscular Hemoglobin 30.0 28.0-32.0 pg Mean Corpuscular Hemoglobin Concent 32.4 32.0-36.0 g/dL Red Cell Distribution Width 16.2 H 11.8-14.3 % Platelet Count 200 140-450 10^3/uL Mean Platelet Volume 8.3 6.9-10.8 fL Neutrophils (%) (Auto) 84.1 H 37.0-80.0 % Lymphocytes (%) (Auto) 7.2 L 10.0-50.0 % Monocytes (%) (Auto) 6.6 0.0-12.0 % Eosinophils (%) (Auto) 1.6 0.0-7.0 % Basophils (%) (Auto) 0.5 0.0-2.0 % Neutrophils # (Auto) 4.9 1.6-8.6 10 ^3/uL Lymphocytes # (Auto) 0.4 0.4-5.4 10 ^3/uL Monocytes # (Auto) 0.4 0-1.3 10 ^3/uL Eosinophils # (Auto) 0.1 0-0.8 10 ^3/uL Basophils # (Auto) 0 0-0.2 10 ^3/uL Nucleated Red Blood Cells 0.1 % Sodium Level 138 136-145 mmol/L Potassium Level 3.7 3.5-5.1 mmol/L Chloride Level 108 H 98-107 mmol/L Carbon Dioxide Level 17 L 20-31 mmol/L Anion Gap 13 5-15 Blood Urea Nitrogen 44 H 9-23 mg/dL Creatinine 5.00 H 0.700-1.30 mg/dL Glomerular Filtration Rate Calc 12 >90 mL/min BUN/Creatinine Ratio 8.8 L 10.0-20.0 Serum Glucose 89 74-106 mg/dL Calcium Level 9.5 8.7-10.4 mg/dL Patient alert. Complaining of constipation. Vitals stable. Answering all questions. Abdomen is soft nontender. No sign of distress. He does take codeine for pain. No acute process. No leg swelling. Saturation appropriate on room air. Heart rate within normal limits. Respiratory rate within normal limits. Spoke with [facility] physician. Explained to the patient. Was told to follow up with his primary care physician. Was told to come back if there is any problem. Time of 1ST Reevaluation: 08:18 Reevaluation 1ST: Improved Patient Education/Counseling: Diagnosis, Treatment, Prognosis Family Education/Counseling: Diagnosis, Treatment, Prognosis Departure 1 Departure Time of Disposition: 08:11 Impression: Primary Impression: CKD (chronic kidney disease), stage IV Additional Impression: Chronic pain syndrome Disposition: 02 SHORT TERM HOSPITAL Admit to: Med Surg Condition: Guarded e-Prescriptions Docusate Sodium (Colace) 100 Mg Cap 100 MG PO DAILY for 5 Days, #5 CAP Prov: HARITHA SNOW MD 11/11/24 Critical Care Note Critical Care Time?: No Stability Stability form required: No Heart Score Heart Score: Heart Score Response (Comments) Value History N/A 0 EKG N/A 0 Age N/A 0 Risk Factors N/A 0 Troponin N/A 0 Total 0 I personally scribed for HARITHA SNOW MD ([email or web address]) on 11/11/24 at 07:54. Electronically submitted by Jason Polo ([email or web address]). HARITHA SNOW MD Nov 11, 2024 07:54
[2024-11-11 08:24] VITALS: TEMP 98.7
[2024-11-11 08:34] LABS: Potassium 3.7 mmol/L (3.5-5.1); Sodium 138 mmol/L (136-145)
[2024-11-11 08:35] LABS: Anion Gap 13 (5-15); Basophils # (auto) 0 10 ^3/uL (0-0.2); Basophils % (auto) 0.5 % (0.0-2.0); Calcium 9.5 mg/dL (8.7-10.4); Eosinophils # (auto) 0.1 10 ^3/uL (0-0.8); Eosinophils % (auto) 1.6 % (0.0-7.0); Hemoglobin 15.2 g/dL (13.5-17.5); Lymphocytes # (auto) 0.4 10 ^3/uL (0.4-5.4); Lymphocytes % (auto) 7.2 % (10.0-50.0); Mean Corpuscular Hgb Conc. 32.4 g/dL (32.0-36.0); Mean Corpuscular Volume 92.8 fL (80.0-100.0); Monocytes # (auto) 0.4 10 ^3/uL (0-1.3); Monocytes % (auto) 6.6 % (0.0-12.0); Neutrophils # (auto) 4.9 10 ^3/uL (1.6-8.6); Neutrophils % (auto) 84.1 % (37.0-80.0); Nucleated Red Blood Cells % 0.1 %; Platelet Count (auto) 200 10^3/uL (140-450); Red Blood Cells 5.06 10^6/uL (4.5-5.90); Red Cell Distribution Width 16.2 % (11.8-14.3); White Blood Cell 5.8 10^3/uL (4.4-10.8)
[2024-11-11 08:40] LABS: BUN/Creatinine Ratio 8.8 (10.0-20.0); Glucose 89 mg/dL (74-106)
[2024-11-11 08:43] LABS: Blood Urea Nitrogen 44 mg/dL (9-23); Carbon Dioxide 17 mmol/L (20-31); Chloride 108 mmol/L (98-107)
[2024-11-11 10:00] VITALS: BP 138/95; PULSE 68; RESP 16; O2SAT 98
[2024-11-11] MEDS ORDERED: DOCU-94 PO (10:08)
== END 2024-11-11 10:21 | disposition short-term general hospital (02) ==
LOC: ER 07:21
DX: I13.0 Hypertensive heart and chronic kidney disease with heart failure and stage 1 through stage 4 chronic kidney disease, or unspecified chronic kidney disease (principal); I50.9 Heart failure, unspecified; N18.4 Chronic kidney disease, stage 4 (severe); G89.4 Chronic pain syndrome; K59.00 Constipation, unspecified; I25.10 Atherosclerotic heart disease of native coronary artery without angina pectoris; E78.5 Hyperlipidemia, unspecified; I25.2 Old myocardial infarction; R11.2 Nausea with vomiting, unspecified; F17.210 Nicotine dependence, cigarettes, uncomplicated; Z86.73 Personal history of transient ischemic attack (TIA), and cerebral infarction without residual deficits; Z79.899 Other long term (current) drug therapy
CPT/HCPCS: 36415; 80048; 85025

== ENCOUNTER 2025-01-24 06:25 | Emergency (ER) | payer BC, MEDICAID ==
[~2025-01-24] VITALS: Ht 172.7 cm; Wt 71.5 kg
[~2025-01-24 06:25] MED LIST changes: +DOCU-94 PO
[2025-01-24 07:26] VITALS: TEMP 97.8
--- NOTE | 2025-01-24 07:36 | DVH ---
EXAM: XR Right Knee, 3 Views CLINICAL INDICATION: FALL TECHNIQUE: Three views of the right knee. COMPARISON: XY R KNEE 4V XRAY on DOS: 07/07/24 FINDINGS: BONES/JOINTS: Unremarkable. No acute fracture. No dislocation. SOFT TISSUES: Unremarkable. OTHER FINDINGS: . None. IMPRESSION: No acute fracture.
--- NOTE | 2025-01-24 07:39 | DVH ---
PROCEDURE: Left hip radiographs. INDICATION: FALL TECHNIQUE: Frontal and lateral views of the left hip were obtained. COMPARISON: None FINDINGS: There is cortical irregularity and increased density in the region of the left posterior ac etabulum. Lucency through the left inferior pubic ramus which could reflect fracture. IMPRESSION: 1. Possible fractures of the left inferior pubic ramus and the left acetabulum. CT left hip recommen ded.
[2025-01-24] MEDS: cloNIDine HCL 0.1 MG TAB PO ONE (07:46)
[2025-01-24] MEDS ORDERED: ACETAMINOPHEN 500 MG TAB or CAP PO ONE (08:00)
--- NOTE | 2025-01-24 08:00 | ED.PDOC ---
Musculoskeletal HPI Comments A 64 YEAR OLD FEMALE PRESENTS TO THE ED WITH COMPLAINT OF RIGHT KNEE PAIN AND LEFT KNEE PAIN STATUS POST FALL. PATIENT WAS STATES HE WAS WALKING TO HIS TRASH CAN AND HE ACCIDENTALLY SLIPPED AND FELL. PATIENT REPORTS HE IS NOW EXPERIENCING RIGHT KNEE PAIN AND LEFT HIP PAIN, BUT NOTES THAT HIS RIGHT KNEE PAIN IS WORSE THAN HIS LEFT HIP PAIN. PATIENT WAS ABLE TO BEAR WEIGHT AND WALK WITH A STABLE GAIT. PATIENT DENIES HEAD INJURY, NECK INJURY, LOC, FEVER, CHILLS, SHORTNESS OF BREATH, CHEST PAIN, ABDOMINAL PAIN, NAUSEA, VOMITING, HEADACHE, OR OTHER COMPLAINTS. NO OTHER SYMPTOMS OR MODIFYING FACTORS AT THIS TIME. PATIENT IS ALERT, ORIENTED X 4, AND HAS STEADY GAIT. Chief Complaint: Fall Injury Time Seen by MD: 06:54 Primary Care Provider: Dr. Aviles Reviewed Notes: Nurses Notes, Medications Allergies: Coded Allergies: NO KNOWN ALLERGIES (Unverified , 08/14/20) Home Meds Active Scripts Docusate Sodium (Colace) 100 Mg Cap, 100 MG PO DAILY for 5 Days, #5 CAP Prov:HARITHA SNOW MD 11/11/24 Ciprofloxacin HCl (Ophth) (Ciprofloxacin Hydrochlori) 0.3 % Yanet, 2 DROP OP QID, #5 ML Prov:AIME BERNAL 10/07/23 Ondansetron (Zofran) 4 Mg Tab, 1 TAB PO Q6HR, #20 TAB Prov:KAYLI RIVERA MD 04/11/22 Sodium Bicarbonate (Sodium Bicarbonate) 650 Mg Tab, 650 MG PO TID, #270 TAB Prov:KAYLI RIVERA MD 04/11/22 Metronidazole (Flagyl) 500 Mg Tab, 500 MG PO TID, #30 TAB Prov:KAYLI RIVERA MD 04/11/22 Carvedilol (Carvedilol) 25 Mg Tab, 25 MG PO TID for 30 Days, #90 MG Prov:KAYLI RIVERA MD 04/11/22 Reported Medications Tamsulosin Hcl (Tamsulosin Hcl) 0.4 Mg Cap, 1 CAP PO DAILY, #30 CAP 5 Refills 04/09/22 Atorvastatin Calcium (ATORVASTATIN CALCIUM) 40 Mg Tab, 1 TAB PO QPM, #90 TAB 3 Refills 04/09/22 Nifedipine (Nifedipine Er) 30 Mg Tab, 30 MG PO, TAB 07/14/21 Amiodarone Hcl (Amiodarone Hcl) 200 Mg Tab, 200 MG PO DAILY for 30 Days 07/14/21 Carvedilol (Coreg) 12.5 Mg Tab, 1 TAB PO BID, #180 TAB 1 Refill 07/14/21 Aspirin (Aspirin) 325 Mg Tab, 325 MG PO DAILY for 30 Days, MG 07/14/21 Nifedipine (Nifedipine Er) 90 Mg Tab, 1 TAB PO DAILY, #30 TAB 5 Refills 03/21/21 Amiodarone Hcl (Amiodarone Hcl) 200 Mg Tab, 200 MG PO DAILY for 30 Days 03/21/21 Aspirin (Aspir-Low) 81 Mg Tab, 81 MG PO DAILY for 30 Days, MG 03/20/21 Nifedipine (Nifedipine Er) 90 Mg Tab, 1 TAB PO DAILYPRN 08/19/20 Aspirin (Asa) 81 Mg Ch, 81 MG PO DAILY 08/15/20 Information Source: Patient Mode of Arrival: Ambulatory Location: Left, Right Extremity Location: Hip (LEFT HIP), Knee (RIGHT KNEE) Timing: Hours Prehospital treatment: None Severity: Moderate Able to Move Extremity: Yes Bear Weight: Fully Pain: Moderate Mechanism: Blunt Trauma, Twisting Circumstances: Fall Onset of Symptoms: After Trauma Symptoms: Pain DVT Risk Factors: NONE Last Tetanus: Unknown Associated signs and symptoms: Knee pain, Hip pain Past Medical History PAST MEDICAL HISTORY: CAD, Cancer, CHF, CKF, CVA, High Lipids, HTN, [place] Past Medical History (Other): CHRONIC RIGHT SHOULDER PAIN Surgical History: Denies all surgeries Family History Family History: Reviewed,noncontributory to illness, Family hx of DM, Family hx of HTN Social History Smoker: Cigarettes, Less Than 1 Pack/Day Alcohol: Rarely Drugs: Marijuana Lives In: Home Constitutional: denies: chills, diaphoresis, fatigue, fever, malaise, sweats, weakness, others EENTM: denies: blurred vision, double vision, ear bleeding, ear discharge, ear drainage, ear pain, ear ringing, eye pain, eye redness, hearing loss, mouth pain, mouth swelling, nasal discharge, nose bleeding, nose congestion, nose pain, photophobia, tearing, throat pain, throat swelling, voice changes, others Respiratory: denies: cough, hemoptysis, orthopnea, SOB at rest, shortness of breath, SOB with excertion, stridor, wheezing, others Cardiovascular: denies: chest pain, dizzy spells, diaphoresis, Dyspnea on exertion, edema, irregular heart beat, left arm pain, lightheadedness, palpitations, PND, syncope, others Gastrointestinal: denies: abdomen distended, abdominal pain, blood streaked bowels, constipated, diarrhea, dysphagia, difficulty swallowing, hematemesis, melena, nausea, poor appetite, poor fluid intake, rectal bleeding, rectal pain, vomiting, others Genitourinary: denies: burning, dysuria, flank pain, frequency, hematuria, incontinence, penile discharge, penile sore, pain, testicle pain, testicle swelling, urgency, others Neurological: denies: dizziness, fainting, headache, left sided numbness, left sided weakness, numbness, paresthesia, pre-existing deficit, right sided numbness, right sided weakness, seizure, speech problems, tingling, tremors, weakness, others Musculoskeletal: reports: joint pain, muscle pain, others (LEFT HIP PAIN, RIGHT KNEE PAIN); denies: back pain, gout, joint swelling, muscle stiffness, neck pain Integumetry: denies: bruises, change in color, change in hair/nails, dryness, laceration, lesions, lumps, rash, wounds, others Allergic/Immunocompromised: denies: Difficulty Healing, Frequent Infections, Hives, Itching, others Hematologic/Lymphatic: denies: anemia, blood clots, easy bleeding, easy bruising, swollen glands, others Endocrine: denies: excessive hunger, excessive sweating, excessive thirst, excessive urination, flushing, intolerance to cold, intolerance to heat, unexplained weight gain, unexplained weight loss, others Psychiatric: denies: anxiety, bipolar disorder, depression, hopeless, panic disorder, schizophrenia, sleepless, suicidal, others All Other Systems: Reviewed and Negative Physical Exam General Appearance: No Apparent Distress, Normal HEENT: Normal ENT Inspection, PERRL/EOMI, Pharynx Normal, TMs Normal Neck: Full Range of Motion, Non-Tender, Normal, Normal Inspection Respiratory: Chest Non-Tender, Lungs Clear, No Accessory Muscle Use, No Respiratory Distress, Normal Breath Sounds Cardiovascular: No Edema, No JVD, No Murmur, No Gallop, Normal Peripheral Pulses, Regular Rate/Rhythm Breast Exam: Deferred Gastrointestinal: No Organomegaly, Non Tender, No Pulsatile Mass, Normal Bowel Sounds, Soft Genitalia: Deferred Pelvic: Deferred Rectal: Deferred Extremities: No calf tenderness, Normal capillary refill, Normal range of motion, No pedal edema, Swelling (TENDERNESS AND MILD SWELLING ON RIGHT KNEE, NO BONY TENDERNESS AND DEFORMITY. ), Tender (LEFT LATERAL HIP TO LEFT BUTTOCK, NO SWELLING AND DEFORMITY. ) Musculoskeletal : Apperance: Normal Neurologic: Alert, oncology rn II-XII nml as Tested, No Motor Deficits, Normal Affect, Normal Mood, No Sensory Deficits Cerebellar Function: Normal Reflexes: Normal Skin: Dry, Normal Color, Warm Peripheral Pulses: 2+ carotid (R), 2+ carotid (L), 2+ dorsalis pedis (R), 2+ dorsalis pedis (L) Lymphatic: No Adenopathy Was a procedure done? Was a procedure done?: No Differential Diagnosis EXT Differential Diagnosis: Fracture, Sprain, Dislocation, DJD, Contusion, Strain, Arthritis, Bursitis X-Ray, Labs, Meds, VS Vital Signs Date Time Temp Pulse Resp B/P (MAP) Pulse Ox O2 Delivery O2 Flow Rate FiO2 01/24/25 09:00 60 18 165/98 (120) 98 01/24/25 08:59 165/98 01/24/25 07:46 186/109 01/24/25 07:26 88 16 97 Room Air 01/24/25 07:26 97.8 88 16 186/109 (134) 97 97.8 01/24/25 06:53 97.8 88 16 185/108 (133) 97 97.8 Current Medications Medications (Trade) Dose Ordered Sig/Rosa Route Start Time Stop Time Status Last Admin Clonidine HCl (Catapres Tablet) 0.2 mg ONCE ONCE PO 01/24/25 07:45 01/24/25 07:46 DC 01/24/25 07:46 Acetaminophen (Tylenol Tablet Or Capsule) 1,000 mg ONCE ONCE PO 01/24/25 08:30 01/24/25 08:31 DC 01/24/25 08:28 EXAM: XR Right Knee, 3 Views CLINICAL INDICATION: FALL TECHNIQUE: Three views of the right knee. COMPARISON: XY R KNEE 4V XRAY on DOS: 07/07/24 FINDINGS: BONES/JOINTS: Unremarkable. No acute fracture. No dislocation. SOFT TISSUES: Unremarkable. OTHER FINDINGS: . None. IMPRESSION: No acute fracture. ATED BY: RE WESTON MD DICTATED DATE/TIME: 01/24/25733 SIGNED BY: RE WESTON MD SIGNED DATE/TIME: 01/24/25733 CC: PROCEDURE: Left hip radiographs. INDICATION: FALL TECHNIQUE: Frontal and lateral views of the left hip were obtained. COMPARISON: None FINDINGS: There is cortical irregularity and increased density in the region of the left posterior acetabulum. Lucency through the left inferior pubic ramus which could reflect fracture. IMPRESSION: 1. Possible fractures of the left inferior pubic ramus and the left acetabulum. CT left hip recommended. ATED BY: ALEXANDRIA CAT MD DICTATED DATE/TIME: 01/24/25736 SIGNED BY: ALEXANDRIA CAT MD SIGNED DATE/TIME: 01/24/25736 CC: CLINICAL INDICATION: 64 years old, Male; FALL, R/O FX. TECHNIQUE: Noncontrast CT of the left hip was performed. Sagittal and coronal reformatted images are provided. COMPARISON: Radiographs of the left hip performed same date. CT Dose: CTDI volume is 7.6 mGy. Dose-length product is 188 mGy*cm FINDINGS: Acute nondisplaced fracture in the left inferior pubic ramus. No left acetabular fracture. Left hip joint space is maintained. No significant soft tissue swelling. IMPRESSION: 1. Acute nondisplaced fracture of the left inferior pubic ramus. 2. No acetabular fracture. No evidence of dislocation. All CT scans at this medical facility are performed using dose modulation techniques as appropriate to a performed exam including the following: Automated exposure control was utilized; adjustment of the MA and/or KV according to yasmine ent size; and use of iterative reconstruction technique. ATED BY: ALEXANDRIA CAT MD DICTATED DATE/TIME: 01/24/25834 SIGNED BY: ALEXANDRIA CAT MD SIGNED DATE/TIME: 01/24/25834 CC: X-Ray, Labs, Meds, VS Comment EXTERNAL MEDICAL RECORDS REVIEWED: [NONE] INDEPENDENT HISTORIANS: [NONE] SOCIAL DETERMINANTS OF HEALTH: [NONE] LABS ORDERED: NONE REVIEWED AND INTERPRETED RESULTS: NONE IMAGING ORDERED: XR KNEE RT, XR HIP LT, CT HIP LT TREATMENTS ORDERED: CLONIDINE 0.2MG PO, TYLENOL 1 G P.O. PROCEDURES PERFORMED: NONE CRITICAL CARE TIME: NONE I HAVE DISCUSSED THE PATIENT WITH THE ATTENDING PHYSICIAN DR. ALVAREZ AND HE AGREES WITH THE PATIENT'S PLAN OF CARE AND DISPOSITION. BASED ON HISTORY OF PRESENT ILLNESS, AND PHYSICAL EXAM, PATIENT WILL BE DISCHARGED HOME. PATIENT DECLINED ANY PRESCRIPTION AT THIS TIME HE STATES HE HAS NORCO 7.5/325MG AT HOME FOR HIS CHRONIC RIGHT SHOULDER PAIN. SHARED DECISION MAKING: PATIENT INSTRUCTED TO FOLLOW UP WITH PRIMARY CARE PROVIDER IN 1-2 DAYS FOR RE-EVALUATION OF SYMPTOMS. PATIENT VERBALIZES UNDERSTANDING TO RETURN TO ED FOR NEW OR WORSENING SYMPTOMS OR IF FOLLOW UP WITH PCP CANNOT BE OBTAINED. PATIENT FEELS COMFORTABLE GOING HOME AT THIS TIME. ALL QUESTIONS ADDRESSED AT TIME OF DISCHARGE. Images Reviewed?: Images reviewed and evaluated by me Time of 1ST Reevaluation: 09:18 Reevaluation 1ST: Improved Patient Education/Counseling: Diagnosis, Treatment, Need For Follow Up Family Education/Counseling: Diagnosis, Treatment, Need For Follow Up Medical Screening: No EMC Exist At This Time Departure 1 Departure Time of Disposition: 09:30 Impression: Primary Impression: Sprain of right knee Qualified Codes: S83.91XA - Sprain of unspecified site of right knee, initial encounter Additional Impressions: Fracture of left inferior pubic ramus Qualified Codes: S32.592A - Other specified fracture of left pubis, initial encounter for closed fracture Status post fall HTN (hypertension) Qualified Codes: I10 - Essential (primary) hypertension Disposition: 01 HOME / SELF CARE / HOMELESS Condition: Stable Additional Instructions: FOLLOW-UP WITH PCP IN 1 TO 2 DAYS FOR REFERRAL TO [facility]ISTR[facility]. RETURN TO ED FOR ANY NEW OR WORSENING SYMPTOMS. Discharged With: Self Critical Care Note Critical Care Time?: No Stability Stability form required: No I personally scribed for AIME BERNAL ([email or web address]) on 01/24/25 at 08:00. Electronically submitted by Siddhartha Tariq ([email or web address]). I personally scribed for AIME BERNAL ([email or web address]) on 01/24/25 at 08:01. Electronically submitted by Siddhartha Tariq ([email or web address]). I personally scribed for AIME BERNAL ([email or web address]) on 01/24/25 at 08:41. Electronically submitted by Siddhartha Tariq ([email or web address]). AIME BERNAL January 24, 2025 08:00
[2025-01-24] MEDS: ACETAMINOPHEN 500 MG TAB or CAP PO ONE (08:28)
--- NOTE | 2025-01-24 08:38 | DVH ---
CLINICAL INDICATION: 64 years old, Male; FALL, R/O FX. TECHNIQUE: Noncontrast CT of the left hip was performed. Sagittal and coronal reformatted images are provided. COMPARISON: Radiographs of the left hip performed same date. CT Dose: CTDI volume is 7.6 mGy. Dose-length product is 188 mGy*cm FINDINGS: Acute nondisplaced fracture in the left inferior pubic ramus. No left acetabular fracture. Left hip joint space is maintained. No significant soft tissue swelling. IMPRESSION: 1. Acute nondisplaced fracture of the left inferior pubic ramus. 2. No acetabular fracture. No evidence of dislocation. All CT scans at this medical facility are performed using dose modulation techniques as appropriate t o a performed exam including the following: Automated exposure control was utilized; adjustment of th e MA and/or KV according to patient size; and use of iterative reconstruction technique.
[2025-01-24 09:00] VITALS: BP 165/98; PULSE 60; RESP 18; O2SAT 98
== END 2025-01-24 09:10 | disposition home or self-care (01) ==
LOC: ER 06:25
DX: S32.592A Other specified fracture of left pubis, initial encounter for closed fracture (principal); S83.91XA Sprain of unspecified site of right knee, initial encounter; I13.0 Hypertensive heart and chronic kidney disease with heart failure and stage 1 through stage 4 chronic kidney disease, or unspecified chronic kidney disease; N18.9 Chronic kidney disease, unspecified; I50.9 Heart failure, unspecified; I25.10 Atherosclerotic heart disease of native coronary artery without angina pectoris; I25.2 Old myocardial infarction; E78.5 Hyperlipidemia, unspecified; F17.210 Nicotine dependence, cigarettes, uncomplicated; F15.90 Other stimulant use, unspecified, uncomplicated; Z86.73 Personal history of transient ischemic attack (TIA), and cerebral infarction without residual deficits; Z85.9 Personal history of malignant neoplasm, unspecified; Z79.82 Long term (current) use of aspirin; Z79.899 Other long term (current) drug therapy; W01.0XXA Fall on same level from slipping, tripping and stumbling without subsequent striking against object, initial encounter; Y93.01 Activity, walking, marching and hiking; Y92.89 Other specified places as the place of occurrence of the external cause; Y99.8 Other external cause status
CPT/HCPCS: 73502; 73562; 73700

== ENCOUNTER 2025-03-26 02:42 | Emergency (ER) | payer BC, MEDICAID ==
[~2025-03-26] VITALS: Ht 172.7 cm; Wt 69.3 kg
[2025-03-26 03:04] LABS: Hematocrit 41.9 % (41.0-53.0); Hemoglobin 13.8 g/dL (13.5-17.5); Mean Corpuscular Hemoglobin 29.9 pg (28.0-32.0); Mean Corpuscular Volume 90.7 fL (80.0-100.0); Nucleated Red Blood Cells % 0.1 %
--- NOTE | 2025-03-26 03:19 | DVH ---
CHEST RADIOGRAPH Indication: chest pain Technique: Single frontal view of the chest was obtained COMPARISON: CHEST PORTABLE on DOS: 04/09/22, CXRP on DOS: 04/09/22 FINDINGS: Lines and Tubes: Right PermCath tip projects over the distal superior vena cava. Left anterior chest wall dual lead cardiac pacing device. Lungs: Clear Pleura: No effusion. No pneumothorax. Cardiomediastinal contours: Unremarkable Bones: Unremarkable IMPRESSION: 1. No acute disease. 2. Right PermCath.
--- NOTE | 2025-03-26 03:44 | ED.PDOC ---
History of Present Illness HPI Comments 64 y/o M presents with c/o nonradiating, sternal chest pain, with associated shortness of breath. Patient endorses on sudden onset of symptoms an hour after consuming his second dose of Eliquis following dialysis at around 2100, yesterday. 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 Patient denies any nausea, vomiting, diarrhea, fever, chills, or further associated symptoms. Significant history of ACS, SERENE, kidney cancer s/p left nephrectomy, ESRD w/HD, pleural effusions, left pneumothorax, pulmonary vascular congestion, CAD, CHF, CVA, HLD HTN, STEMI, and pacemaker. Chief Complaint: Chest Pain Time Seen by MD: 02:40 Primary Care Provider: Dr. Aviles Reviewed Notes: Nurses Notes, Medications, Allergies Allergies: Coded Allergies: NO KNOWN ALLERGIES (Unverified , 08/14/20) Home Meds Active Scripts Docusate Sodium (Colace) 100 Mg Cap, 100 MG PO DAILY for 5 Days, #5 CAP Prov:HARITHA SNOW MD 11/11/24 Ciprofloxacin HCl (Ophth) (Ciprofloxacin Hydrochlori) 0.3 % Yanet, 2 DROP OP QID, #5 ML Prov:AIME BERNAL 10/07/23 Ondansetron (Zofran) 4 Mg Tab, 1 TAB PO Q6HR, #20 TAB Prov:KAYLI RIVERA MD 04/11/22 Sodium Bicarbonate (Sodium Bicarbonate) 650 Mg Tab, 650 MG PO TID, #270 TAB Prov:KAYLI RIVERA MD 04/11/22 Metronidazole (Flagyl) 500 Mg Tab, 500 MG PO TID, #30 TAB Prov:KAYLI RIVERA MD 04/11/22 Carvedilol (Carvedilol) 25 Mg Tab, 25 MG PO TID for 30 Days, #90 MG Prov:KAYLI RIVERA MD 04/11/22 Reported Medications Tamsulosin Hcl (Tamsulosin Hcl) 0.4 Mg Cap, 1 CAP PO DAILY, #30 CAP 5 Refills 04/09/22 Atorvastatin Calcium (ATORVASTATIN CALCIUM) 40 Mg Tab, 1 TAB PO QPM, #90 TAB 3 Refills 04/09/22 Nifedipine (Nifedipine Er) 30 Mg Tab, 30 MG PO, TAB 07/14/21 Amiodarone Hcl (Amiodarone Hcl) 200 Mg Tab, 200 MG PO DAILY for 30 Days 07/14/21 Carvedilol (Coreg) 12.5 Mg Tab, 1 TAB PO BID, #180 TAB 1 Refill 07/14/21 Aspirin (Aspirin) 325 Mg Tab, 325 MG PO DAILY for 30 Days, MG 07/14/21 Nifedipine (Nifedipine Er) 90 Mg Tab, 1 TAB PO DAILY, #30 TAB 5 Refills 03/21/21 Amiodarone Hcl (Amiodarone Hcl) 200 Mg Tab, 200 MG PO DAILY for 30 Days 03/21/21 Aspirin (Aspir-Low) 81 Mg Tab, 81 MG PO DAILY for 30 Days, MG 03/20/21 Nifedipine (Nifedipine Er) 90 Mg Tab, 1 TAB PO DAILYPRN 08/19/20 Aspirin (Asa) 81 Mg Ch, 81 MG PO DAILY 08/15/20 Information Source: Patient Mode of Arrival: Ambulatory Severity: Moderate Timing: Hours Duration: Since onset Prehospital treatment: None Past Medical History PAST MEDICAL HISTORY: CAD, Cancer (kidney cancer s/p nephrectomy, left ), CHF (systolic and diastolic ), CKF (stage IV ), CVA, ESRD, High Lipids, HTN, [place] (NSTEMI) Past Medical History (Other): diverticulitis SERENE hypokalemia hypoalbuminemia BPH pleural effusions pneumothorax, left pumonary vascular congestion ACS chronic pain syndrome Surgical History: Pacemaker Family History Family History: Reviewed,noncontributory to illness, Family hx of DM, Family hx of HTN Social History Smoker: Cigarettes, Less Than 1 Pack/Day Alcohol: Rarely Drugs: Marijuana Lives In: Home All Other Systems: Reviewed and Negative (Comprehensive systems review obtained and negative except for what is stated in the HPI.) Physical Exam General Appearance: No Apparent Distress, Normal HEENT: Normal ENT Inspection, Pharynx Normal, TMs Normal Neck: Full Range of Motion, Non-Tender, Normal, Normal Inspection Respiratory: Chest Non-Tender, Lungs Clear, No Accessory Muscle Use, No Respiratory Distress, Normal Breath Sounds Cardiovascular: No Edema, No JVD, No Murmur, No Gallop, Normal Peripheral Pulses, Regular Rate/Rhythm Breast Exam: Deferred Gastrointestinal: No Organomegaly, Non Tender, No Pulsatile Mass, Normal Bowel Sounds, Soft Genitalia: Deferred Pelvic: Deferred Rectal: Deferred Extremities: No calf tenderness, Normal capillary refill, Normal inspection, Normal range of motion, Non-tender, No pedal edema Musculoskeletal : Apperance: Normal Neurologic: Alert, customs compliance director II-XII nml as Tested, No Motor Deficits, Normal Affect, Normal Mood, No Sensory Deficits Cerebellar Function: Normal Reflexes: Normal Skin: Dry, Normal Color, Warm Lymphatic: No Adenopathy Was a procedure done? Was a procedure done?: No Differential Dx Considerations may include: [place], PE, ACS, URI, PNA, costochondritis, pericarditis, gastritis, adverse medication effect, viral syndrome, among others X-Ray, Labs, Meds, VS Vital Signs Date Time Temp Pulse Resp B/P (MAP) Pulse Ox O2 Delivery O2 Flow Rate FiO2 03/26/25 03:55 62 03/26/25 02:55 98.6 76 16 177/119 (138) 99 98.6 03/26/25 02:46 60 Lab Test 03/26/25 03:36 03/26/25 02:50 Range/Units Troponin I High Sensitivity Pending 72 *H </=54 ng/L White Blood Count 6.5 4.4-10.8 10^3/uL Red Blood Count 4.62 4.5-5.90 10^6/uL Hemoglobin 13.8 13.5-17.5 g/dL Hematocrit 41.9 41.0-53.0 % Mean Corpuscular Volume 90.7 80.0-100.0 fL Mean Corpuscular Hemoglobin 29.9 28.0-32.0 pg Mean Corpuscular Hemoglobin Concent 33.0 32.0-36.0 g/dL Red Cell Distribution Width 16.7 H 11.8-14.3 % Platelet Count 194 140-450 10^3/uL Mean Platelet Volume 7.9 6.9-10.8 fL Neutrophils (%) (Auto) 62.8 37.0-80.0 % Lymphocytes (%) (Auto) 21.7 10.0-50.0 % Monocytes (%) (Auto) 9.7 0.0-12.0 % Eosinophils (%) (Auto) 4.9 0.0-7.0 % Basophils (%) (Auto) 0.9 0.0-2.0 % Neutrophils # (Auto) 4.1 1.6-8.6 10 ^3/uL Lymphocytes # (Auto) 1.4 0.4-5.4 10 ^3/uL Monocytes # (Auto) 0.6 0-1.3 10 ^3/uL Eosinophils # (Auto) 0.3 0-0.8 10 ^3/uL Basophils # (Auto) 0.1 0-0.2 10 ^3/uL Nucleated Red Blood Cells 0.1 % Sodium Level 141 136-145 mmol/L Potassium Level 4.4 3.5-5.1 mmol/L Chloride Level 102 98-107 mmol/L Carbon Dioxide Level 28 20-31 mmol/L Anion Gap 11 5-15 Blood Urea Nitrogen 36 H 9-23 mg/dL Creatinine 4.97 H 0.700-1.30 mg/dL Glomerular Filtration Rate Calc 12 >90 mL/min BUN/Creatinine Ratio 7.2 L 10.0-20.0 Serum Glucose 104 74-106 mg/dL Calcium Level 9.1 8.7-10.4 mg/dL [place] [id number] Ph: [phone] DIAGNOSTIC IMAGING Diagnostic Imaging Report : [id number] Signed PATIENT: JULIO C JOHNSON ACCT: [id number] UNIT: [id number] : 1960 LOC: ER ROOM / BED: / AGE / SEX: 64 / M ADM STATUS: REG ER SERVICE [id number] ORDERING PHYSICIAN: FERNANDO ZEE MD PROCEDURE(s): CXRP - CHEST PORTABLE REASON: chest pain ORDER NUMBER(s): [id number], ACCESSION NUMBER(s): [id number] CHEST RADIOGRAPH Indication: chest pain Technique: Single frontal view of the chest was obtained COMPARISON: CHEST PORTABLE on DOS: 04/09/22, CXRP on DOS: 04/09/22 FINDINGS: Lines and Tubes: Right PermCath tip projects over the distal superior vena cava. Left anterior chest wall dual lead cardiac pacing device. Lungs: Clear Pleura: No effusion. No pneumothorax. Cardiomediastinal contours: Unremarkable Bones: Unremarkable IMPRESSION: 1. No acute disease. 2. Right PermCath. ATED BY: SHAYNE RIVAS MD DICTATED DATE/TIME: 03/26/25316 SIGNED BY: SHAYNE RIVAS MD SIGNED DATE/TIME: 03/26/25316 CC: Time of 1ST Reevaluation: 03:10 Reevaluation 1ST: Unchanged Patient Education/Counseling: Diagnosis, Treatment Family Education/Counseling: No Family Present Additional Information Previous visits reviewed: March 20, 2021, July 13, 2021, and April 11, 2022 for NSTEMI, chest pain/elevated troponin, and chest pain/rectal bleed/SERENE, respectively. The following tests were ordered, and results were reviewed by me: EKG, Troponin, CXR, CBC, BMP Additional Information was gathered from interviewing the following independent historians: N/A I reviewed and agreed with the following test results read by other providers: CXR I discussed treatment and results with medical personnel and: patient SEPSIS Sepsis Screen Date sepsis recognized/suspect: Mar 26, 2025 Time Sepsis recognized/suspect: 244 Recent Procedure: No On Antibiotic Therapy: No Respiratory Rate >20: No Heart Rate >90: No Temp<36 C (96.8 F) or >38.3 C: No SBP <90 or MAP <65 mmHG: No New Acute Mental Status Change: No Is the patient on CPAP, BIPAP,: No Physician Orders Chest Portable (03/26/25 02:43) Electrocardigram (03/26/25 02:43) Troponin-I Hs (03/26/25 03:43) Troponin-I Hs (03/26/25 05:43) Electrocardigram (03/26/25 03:43) Electrocardigram (03/26/25 05:43) Vital Signs Date Time Temp Pulse Resp B/P (MAP) Pulse Ox O2 Delivery O2 Flow Rate FiO2 03/26/25 03:55 62 03/26/25 02:55 98.6 76 16 177/119 (138) 99 98.6 03/26/25 02:46 60 Laboratory Tests Test 03/26/25 02:50 White Blood Count 6.5 10^3/uL (4.4-10.8) Departure 1 Departure Time of Disposition: 04:17 (Patient presented with chest pain that was concerning for possible STEMI, ACS, PE, Pneumonia, Muscle Strain, COPD, Di ssection. Data: 1. I ordered and reviewed the result of at least 3 labs including a CBC, BMP, and Troponin. 2. I independently interpreted the following tests: EKG which shows sinus arrhythmia and Chest X-ray which shows benign chest.Risk:This patient has a high risk of morbidity due to further diagnostic testing or treatment and may suffer from an acute cardiac or respiratory diso rder. Workup reveals concern for ACS and patient should be admitted for further workup and possible expert consultation. ) Impression: Primary Impression: Acute chest pain Disposition: ADMITTED INPATIENT Admit to: Med Surg Condition: Serious Critical Care Note Critical Care Time?: Yes Critical care comment: Acute chest pain Authorized and Performed by: Fernando Zee MD Total critical care time: Approximately 38 minutes Due to a high probability of clinically significant, life threatening deterioration, the patient required my highest level of preparedness to intervene emergently and I personally spent this critical care time directly and personally managing the patient. This critical care time included obtaining a history; examining the patient; pulse oximetry; ordering and review of studies; arranging urgent treatment with development of a management plan; evaluation of patient's response to treatment; frequent reassessment; and, discussions with other providers. This critical care time was performed to assess and manage the high probability of imminent, life-threatening deterioration that could result in multi-organ failure. It was exclusive of separately billable procedures and treating other patients and teaching time. Please see my other sections and the rest of the note for further information on patient assessment and treatment. Stability Stability form required: No Heart Score Heart Score: Heart Score Response (Comments) Value History Moderate Suspicious 1 EKG Normal 0 Age 45-64 1 Risk Factors >3 or Hx ASHD 2 Troponin Normal limit 0 Total 4 I personally scribed for FERNANDO ZEE MD ([email or web address]) on 03/26/25 at 03:44. Electronically submitted by Gerson Mas ([email or web address]). I personally scribed for FERNANDO ZEE MD ([email or web address]) on 03/26/25 at 04:06. Electronically submitted by Gerson Mas ([email or web address]). FERNANDO ZEE MD Mar 26, 2025 03:44
[2025-03-26 03:58] LABS: Chloride 102 mmol/L (98-107); Potassium 4.4 mmol/L (3.5-5.1); Sodium 141 mmol/L (136-145)
[2025-03-26 03:59] LABS: Anion Gap 11 (5-15); Carbon Dioxide 28 mmol/L (20-31)
[2025-03-26 04:00] LABS: Calcium 9.1 mg/dL (8.7-10.4)
[2025-03-26 04:05] LABS: BUN/Creatinine Ratio 7.2 (10.0-20.0); Glucose 104 mg/dL (74-106)
[2025-03-26 04:13] LABS: Blood Urea Nitrogen 36 mg/dL (9-23)
--- NOTE | 2025-03-26 04:38 | ECG ---
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
--- NOTE | 2025-03-26 04:38 | ECG ---
[facility] Test Date: 2025-03-26 Test Time: 03:55:24 Pat Name: JULIO C JOHNSON Department: ER Room: Gender: M Retirement Specialist: NATALIIA : 1960 Requested By: FERNANDO ZEE Order Number: [id number] Reading MD: Naresh Mejia Measurements Intervals [place] Rate: 62 P: 0 [place]: 215 QRS: 34 QRSD: 114 T: 113 QT: 475 QTc: 483 Interpretive Statements Atrial-paced rhythm Borderline intraventricular conduction delay Abnormal T, consider ischemia, lateral leads Minimal ST elevation, anterior leads Electronically Signed On 03-28-2025 9:53:39 PDT by Naresh Mejia Please click the below link to view image of tracing.
[2025-03-26] MEDS: MORPHINE SULFATE 4 MG/ML SYR/VIAL IV ONE (04:56)
[2025-03-26] MEDS: ONDANSETRON HCL 4 MG/2 ML VIAL IV ONE (04:56)
[2025-03-26 05:13] VITALS: PULSE 60; RESP 18; O2SAT 98
[2025-03-26] MEDS: LABETALOL HCL 20 MG/4 ML VL IV ONE ×3 (05:25→13:04)
--- NOTE | 2025-03-26 05:39 | ECG ---
[facility] Test Date: 2025-03-26 Test Time: 05:37:40 Pat Name: JULIO C JOHNSON Department: ER Room: Gender: M Inlayer Silver: NATALIIA : 1960 Requested By: FERNANDO ZEE Order Number: [id number] Reading MD: Naresh Mejia Measurements Intervals [place] Rate: 60 P: 0 FL: 226 QRS: 31 QRSD: 110 T: 107 QT: 472 QTc: 472 Interpretive Statements Atrial-paced rhythm Abnormal T, consider ischemia, lateral leads Electronically Signed On 03-28-2025 9:54:51 PDT by Naresh Mejia Please click the below link to view image of tracing.
[2025-03-26] MEDS: CARVEDILOL 12.5 MG TAB PO ONE (06:31)
[2025-03-26 07:30] VITALS: PULSE 63; RESP 19; O2SAT 100
[2025-03-26] MEDS ORDERED: ONDANSETRON HCL 4 MG/2 ML VIAL IV PRN (07:30)
[2025-03-26] MEDS ORDERED: LABETALOL HCL 20 MG/4 ML VL IV PRN (07:30)
[2025-03-26] MEDS ORDERED: NITROGLYCERIN 0.4 MG SL TAB SL PRN (07:30)
[2025-03-26 08:00] VITALS: PULSE 60; RESP 13; TEMP 97.6; O2SAT 97
[2025-03-26] MEDS: ASPirin-EC 81 mg tab PO SCH (10:00)
[2025-03-26 16:04] VITALS: TEMP 98.2
[2025-03-26] MEDS: hydrALAZINE HCL 20 MG/ML VL IV ONE ×2 (17:15→18:00)
[2025-03-26] MEDS ORDERED: CLON0.1T PO ×2 (17:23→18:36)
[2025-03-26 18:19] VITALS: BP 144/90; PULSE 73; RESP 19; O2SAT 95
[2025-03-26] MEDS ORDERED: ATORVASTATIN 20 MG TAB PO SCH (22:00)
--- NOTE | 2025-03-26 22:19 | DVHINCON2 ---
Date of service: Mar 26, 2025 Referring Physician Sarah Reason for Consultation Chest pain with HTN History of Present Illness This is a 64 year old male with a past medical history of ACS, SERENE, kidney cancer s/p left nephrectomy, ESRD on HD, CAD, CHF, CVA, HLD, HTN and pacemaker presented to the ED with complaint of nonradiating, sternal chest pain, with associated shortness of breath. Patient endorses on sudden onset of symptoms an hour after consuming his second dose of Eliquis following dialysis at around 2100, yesterday. He reports being placed on medication, recently, by his kindergarten assistant following recent in-person visit 2x days ago. TROP 72, 71, 69. BUN 36, TRANSITIONAL LIVING SPECIALIST 4.97. Chest x-ray shows NAD. EKG shows atrial paced rhythm at 60. Patient was admitted to the hospital. I am asked to consult on this patient. Family History: Alcoholism G8 FATHER Cardiovascular disease G8 FATHER Hypertension G8 FATHER Allergies: Coded Allergies: NO KNOWN ALLERGIES (Unverified , 08/14/20) Home Meds Active Scripts Clonidine Hydrochloride (Clonidine Hcl) 0.1 Mg Tab, 0.1 MG PO TID for 30 Days, #90 TAB 0 Refills Take if SBP>160 and DBP>100. Prov:ANATOLIY ESCOBAR DO 03/26/25 Docusate Sodium (Colace) 100 Mg Cap, 100 MG PO DAILY for 5 Days, #5 CAP Prov:HARITHA SNOW MD 11/11/24 Ciprofloxacin HCl (Ophth) (Ciprofloxacin Hydrochlori) 0.3 % Yanet, 2 DROP OP QID, #5 ML Prov:AIME BERNAL 10/07/23 Ondansetron (Zofran) 4 Mg Tab, 1 TAB PO Q6HR, #20 TAB Prov:KAYLI RIVERA MD 04/11/22 Sodium Bicarbonate (Sodium Bicarbonate) 650 Mg Tab, 650 MG PO TID, #270 TAB Prov:KAYLI RIVERA MD 04/11/22 Metronidazole (Flagyl) 500 Mg Tab, 500 MG PO TID, #30 TAB Prov:KAYLI RIVERA MD 04/11/22 Carvedilol (Carvedilol) 25 Mg Tab, 25 MG PO TID for 30 Days, #90 MG Prov:KAYLI RIVERA MD 04/11/22 Reported Medications Tamsulosin Hcl (Tamsulosin Hcl) 0.4 Mg Cap, 1 CAP PO DAILY, #30 CAP 5 Refills 04/09/22 Atorvastatin Calcium (ATORVASTATIN CALCIUM) 40 Mg Tab, 1 TAB PO QPM, #90 TAB 3 Refills 04/09/22 Nifedipine (Nifedipine Er) 30 Mg Tab, 30 MG PO, TAB 07/14/21 Amiodarone Hcl (Amiodarone Hcl) 200 Mg Tab, 200 MG PO DAILY for 30 Days 07/14/21 Carvedilol (Coreg) 12.5 Mg Tab, 1 TAB PO BID, #180 TAB 1 Refill 07/14/21 Aspirin (Aspirin) 325 Mg Tab, 325 MG PO DAILY for 30 Days, MG 07/14/21 Nifedipine (Nifedipine Er) 90 Mg Tab, 1 TAB PO DAILY, #30 TAB 5 Refills 03/21/21 Amiodarone Hcl (Amiodarone Hcl) 200 Mg Tab, 200 MG PO DAILY for 30 Days 03/21/21 Aspirin (Aspir-Low) 81 Mg Tab, 81 MG PO DAILY for 30 Days, MG 03/20/21 Nifedipine (Nifedipine Er) 90 Mg Tab, 1 TAB PO DAILYPRN 08/19/20 Aspirin (Asa) 81 Mg Ch, 81 MG PO DAILY 08/15/20 Current Medications Current Medications Medications (Trade) Dose Ordered Sig/Rosa Route PRN Reason Start Time Stop Time Status Last Admin Labetalol HCl (Labetalol HCl) 20 mg Q4HP PRN IV SBP>160 03/26/25 07:30 Atorvastatin Calcium (Lipitor) 40 mg HS PO 03/26/25 22:00 Aspirin (Ecotrin Enteric Coated Tablet) 81 mg DAILY PO 03/26/25 10:00 03/26/25 10:00 Ondansetron HCl (Zofran) 4 mg Q4HPRN PRN IV NAUSEA / VOMITING 03/26/25 07:30 Nitroglycerin (Ntrostat Sublingual) 0.4 mg Q5MINP PRN SL FOR CHEST PAIN 03/26/25 07:30 Review of Systems All Other Systems: Reviewed and Negative (Comprehensive systems review obtained and negative except for what is stated in the HPI.) Vital Signs Vital Signs Date Time Temp Pulse Resp B/P (MAP) Pulse Ox O2 Delivery O2 Flow Rate FiO2 03/26/25 16:04 98.2 63 14 164/102 (122) 98.2 03/26/25 08:00 97 03/26/25 07:30 Room Air* 0 21 Physical Exam GENERAL: Alert and oriented x 3. No acute distress. EYES: PERRL, EOMI. Anicteric. HENT: Moist mucous membranes. LUNGS: Clear to auscultation bilaterally. CARDIOVASCULAR: Regular rate and rhythm. ABDOMEN: Soft, nontender and nondistended. EXTREMITIES: No edema. NEUROLOGIC: No focal neurological deficits. SKIN: Warm, dry. Labs/Diagnostic Data Labs Test 03/26/25 06:00 03/26/25 02:50 Range/Units Troponin I High Sensitivity 69 *H </=54 ng/L White Blood Count 6.5 4.4-10.8 10^3/uL Red Blood Count 4.62 4.5-5.90 10^6/uL Hemoglobin 13.8 13.5-17.5 g/dL Hematocrit 41.9 41.0-53.0 % Mean Corpuscular Volume 90.7 80.0-100.0 fL Mean Corpuscular Hemoglobin 29.9 28.0-32.0 pg Mean Corpuscular Hemoglobin Concent 33.0 32.0-36.0 g/dL Red Cell Distribution Width 16.7 H 11.8-14.3 % Platelet Count 194 140-450 10^3/uL Mean Platelet Volume 7.9 6.9-10.8 fL Neutrophils (%) (Auto) 62.8 37.0-80.0 % Lymphocytes (%) (Auto) 21.7 10.0-50.0 % Monocytes (%) (Auto) 9.7 0.0-12.0 % Eosinophils (%) (Auto) 4.9 0.0-7.0 % Basophils (%) (Auto) 0.9 0.0-2.0 % Neutrophils # (Auto) 4.1 1.6-8.6 10 ^3/uL Lymphocytes # (Auto) 1.4 0.4-5.4 10 ^3/uL Monocytes # (Auto) 0.6 0-1.3 10 ^3/uL Eosinophils # (Auto) 0.3 0-0.8 10 ^3/uL Basophils # (Auto) 0.1 0-0.2 10 ^3/uL Nucleated Red Blood Cells 0.1 % Sodium Level 141 136-145 mmol/L Potassium Level 4.4 3.5-5.1 mmol/L Chloride Level 102 98-107 mmol/L Carbon Dioxide Level 28 20-31 mmol/L Anion Gap 11 5-15 Blood Urea Nitrogen 36 H 9-23 mg/dL Creatinine 4.97 H 0.700-1.30 mg/dL Glomerular Filtration Rate Calc 12 >90 mL/min BUN/Creatinine Ratio 7.2 L 10.0-20.0 Serum Glucose 104 74-106 mg/dL Calcium Level 9.1 8.7-10.4 mg/dL Assessment Acute chest pain. HTN. Plan/Recommendation I agree with your ongoing assessment and care of plan. Labetalol, Coreg, Nifedipine. Aspirin,Lipitor. Nitro SL.. Additional plan as per the hospital course. A total of 45 minutes was spent reviewing the patient record, examining the patient, making a diagnostic and therapeutic plan, discussing this plan with medical personnel, following up on diagnostic studies and following the patient for clinical stability excluding any and all procedures. At least 50% of this time was spent in direct, [id number] contact. Plan discussed with: Patient JO HITCHCOCK MD Mar 26, 2025 16:52
--- NOTE | 2025-03-28 07:52 | DVHINCON2 ---
DATE OF CONSULTATION: 03/26/2025 This is a late note consultation for 03/26/2025. CHIEF COMPLAINT: ____. HISTORY OF PRESENT ILLNESS: This is a 64-year-old male with significant past medical history for essential hypertension; atrial fibrillation, on Eliquis; resistant hypertension; end-stage renal disease, on hemodialysis; benign prostate hypertrophy, who presented to the Emergency Room after experiencing chest pain. The patient apparently received his dialysis the day prior. He comes in early this morning due to symptoms in his chest, which he says is left-sided, sharp in nature and constant, nonradiating, associated with mild nausea, but no vomiting, no shortness of breath. The patient also denies any numbness or tingling of his either upper extremities. The patient recorded blood pressures at home and noticed that it was 170/101. The patient says he has not had any chest pains recently. He has no exertional chest pain symptoms. The patient has not been recently sick. Denies any fevers or chills. Denies any pleuritic chest pain. Denies any orthopnea symptoms, fever or chills, any diarrhea, constipation, bloody or tarry stools, urinary frequency, urgency, or burning sensation. The patient says he has been consistent with his home blood pressure medications to include his nifedipine 90 mg which he takes in the evenings as well as his Coreg 25 mg twice a day. PAST MEDICAL HISTORY: Resistant hypertension; end-stage renal disease, on hemodialysis; coronary artery disease; hyperlipidemia; AFib, on Eliquis; benign prostatic hypertrophy. PAST SURGICAL HISTORY: Pacemaker. SOCIAL HISTORY: No tobacco, no alcohol, no illicit drugs. MEDICATIONS AT HOME: Include Coreg 25 mg p.o. b.i.d., amiodarone 100 mg p.o. daily, nifedipine 90 mg p.o. daily, atorvastatin 40 mg once daily, and Flomax 0.4 mg p.o. daily. MEDICATION ALLERGIES: No known drug allergies. REVIEW OF SYSTEMS: A 10-point review of systems was covered with the patient and was negative with the exception to what was present in history of present illness. PHYSICAL EXAMINATION: VITAL SIGNS: The patient's blood pressure was 177/119, temperature of 98.6, pulse rate of 60, respiratory rate of 16 with pulse ox of 99% on room air. GENERAL: Seems to be alert and oriented x 4, not in acute distress, male, sitting up in a chair. HEENT: Normocephalic and atraumatic. Extraocular muscles were intact. Pupils were equally round and reactive to light and accommodation. Mucous membranes look moist. CARDIOVASCULAR: S1 and S2 positive. Regular rate and rhythm. No rubs, gallops or murmurs. LUNGS: Clear to auscultation bilaterally. No wheezing, rhonchi, or rales. ABDOMEN: Soft, nontender, and nondistended. Positive bowel sounds. No guarding or rebound. EXTREMITIES: No lower extremity edema, clubbing, or cyanosis. NEUROLOGIC: No focal deficits. Cranial nerve testing 2 to 12 overall seems to be intact. LABORATORY WORKUP: Shows a white count of 6.5, H and H of 13.8/41.9, platelet count of 194,000. Sodium 141, potassium 4.4, chloride 102, carbon dioxide of 28, anion gap of 11, BUN of 36, creatinine 4.97, serum glucose of 104. Troponin initially of 72, repeat of 71, repeat of 69. IMAGING: Chest x-ray shows no acute disease, right Perm-a-cath. A 12-lead EKG was also completed, showed atrial-paced rhythm with a rate of 60. DIAGNOSES: * Hypertensive urgency. * Nonspecific elevated cardiac enzymes. SECONDARY DIAGNOSES: * End-stage renal disease, on hemodialysis. * Hyperlipidemia. * Coronary artery disease. PLAN: The patient was seen in the Emergency Room. Full assessment of the patient was completed. The patient is presenting with extremely elevated blood pressures with symptoms of retrosternal chest discomfort, which is nonexertional. The patient's symptoms alleviated after bringing the patient's blood pressures to normal limits. The patient is no longer experiencing any form of chest pain symptoms. The patient's minimal elevated cardiac enzymes seem to be likely secondary to accumulation due to underlying end-stage renal disease. The patient on his prior ER visits here always had minimally elevated cardiac enzymes in the low 100s. The patient did receive his dialysis the day prior and typically has well-controlled blood pressures at home with this exception. The patient had a similar presentation 4 years ago getting his blood pressure under control, the patient presented in a similar fashion a few years prior with elevated blood pressures and discomfort in his chest. He also underwent at that point an angiogram, which showed normal coronaries. At this time, I do not expect acute coronary syndrome. The patient's minimally elevated cardiac enzymes are possibly secondary to demand, but more likely an accumulation process due to underlying end-stage renal disease. The patient despite this was seen by a nurse recruiter, Dr. Harry Casey who has cleared the patient from Cardiac perspective for outpatient followup with his primary nurse recruiter and PCP. The patient's blood pressure medications have been reviewed with the patient, currently taking Coreg 25 mg twice a day, as well as nifedipine 90 mg p.o. at nighttime. In addition to this, the patient will be given clonidine 0.1 mg p.o. p.r.n. t.i.d. for systolic blood pressures greater than 150. The patient otherwise again without any further underlying symptoms of any chest pain, feeling improved, will be discharged home in stable condition. The patient to return to the Emergency Room in case of any returning of chest pains or any shortness of breath, dizziness, fevers, chills, nausea, vomiting, or any other concerning signs and/or symptoms. The patient will be arranged for a followup with his primary care provider within the next 7 to 10 days. The patient to go to ____ [facility]gent Care within the next 24 to 48 hours for repeat vitals for monitoring of his blood pressures. The patient will also schedule routine followup with his primary nurse recruiter. Haris Zhang MD LM/KILLIAN/SHONDA TID: [id number] RECEIPT: [id number]
== END 2025-03-26 18:52 | disposition home or self-care (01) ==
LOC: ER 02:42
DX: R07.89 Other chest pain (principal); I13.2 Hypertensive heart and chronic kidney disease with heart failure and with stage 5 chronic kidney disease, or end stage renal disease; N18.6 End stage renal disease; I50.9 Heart failure, unspecified; E78.5 Hyperlipidemia, unspecified; F17.210 Nicotine dependence, cigarettes, uncomplicated; I25.10 Atherosclerotic heart disease of native coronary artery without angina pectoris; I25.2 Old myocardial infarction; I48.91 Unspecified atrial fibrillation; Z79.82 Long term (current) use of aspirin; Z79.899 Other long term (current) drug therapy; Z85.528 Personal history of other malignant neoplasm of kidney; Z86.73 Personal history of transient ischemic attack (TIA), and cerebral infarction without residual deficits; Z95.0 Presence of cardiac pacemaker; Z99.2 Dependence on renal dialysis
CPT/HCPCS: 36415; 71045; 80048; 84484; 85025; 93005; 96374; 96375; 96376; 99285; J0360; J2270; J2405